=== PATIENT | female | born 1970 | race Caucasian/White ===

== ENCOUNTER 2021-01-22 17:32 | Emergency (ER) | payer OTHER, SELFPAY ==
--- NOTE | 2021-01-22 | ECG_ITS ---
Test Reason : CP Blood Pressure : / mmHG Vent. Rate : 074 BPM Atrial Rate : 074 BPM P-R Int : 156 ms QRS Dur : 074 ms QT Int : 372 ms P-R-T Axes : 036 044 034 degrees QTc Int : 412 ms Normal sinus rhythm Normal ECG No previous ECGs available Referred By: Generic ED Physician Electronically Signed By:Deepak Marcos
[2021-01-22 17:48] VITALS: BP 133/80; PULSE 72; RESP 16; TEMP 36.6; O2SAT 99; BMI 29.4
[2021-01-22 18:15] LABS: MANUAL DIFF FLAG NO
[2021-01-22 18:40] LABS: Anion Gap 13 (12-20); Blood Urea Nitrogen 18 mg/dL (9-16); Calcium 9.9 mg/dL (8.4-10.2); Carbon Dioxide 31 mmol/L (22-29); Chloride 102 mmol/L (96-108); Creatinine Clr Calc Pharmacy 80.7; Estimated Glomerular Filt Rate > 60; Glucose Random 192 mg/dL (60-115); Potassium 4.2 mmol/L (3.3-5.1); Sodium 142 mmol/L (135-145)
[2021-01-22 18:47] LABS: Troponin-I High Sensitivity < 3.5 ng/L (<3.5-17.0)
[2021-01-22 18:49] LABS: Basophils Percent Auto 0.3 % (0-2); Eosinophils Absolute Auto 0.1 X10*3/uL (0.0-0.4); Eosinophils Percent Auto 0.7 % (0-4); Hematocrit 35.2 % (37-47); Imm Gran Abs Auto 0.02 X10*3/uL (0.00-0.03); Imm Gran Pct Auto 0.2 % (0.0-0.4); Lymphocytes Absolute Auto 2.8 X10*3/uL (1.2-4.9); Lymphocytes Percent Auto 29.7 % (20-40); Mean Corpuscular HGB Conc 34.1 g/dl (31.0-35.0); Mean Corpuscular Hemoglobin 29.6 pg (27.0-33.0); Mean Corpuscular Volume 86.7 fL (80-98); Mean Platelet Volume 10.9 fL (9.4-12.3); Monocytes Absolute Auto 0.5 X10*3/uL (0.1-1.2); Monocytes Percent Auto 5.1 % (2-11); Platelet Count 286 X10*3/uL (160-400); Red Blood Count 4.06 X10*6/uL (4.20-5.50); Red Cell Distribution Width 12.2 % (11.0-16.0); White Blood Count 9.4 X10*3/uL (4.8-10.8)
[2021-01-22 19:22] VITALS: PULSE 83
[2021-01-22 19:36] VITALS: BP 122/77; PULSE 70; RESP 16; TEMP 36.7; O2SAT 100
[2021-01-22 20:13] VITALS: BP 113/71; PULSE 70; RESP 16; O2SAT 99
--- NOTE | 2021-01-22 20:39 | ED.CHESTPAIN ---
HPI - Chest Pain General Chief Complaint: Chest Pain Stated Complaint: chest pain Time Seen by Provider: 01/22/21 20:39 Source: patient Mode of arrival: ambulatory Limitations: no limitations History of Present Illness HPI narrative: Patient been having midsternal chest pain for last 2 weeks sharp pain lasting for few seconds pain starts in epigastric area goes to mid sternum no nausea no vomiting no shortness of breath no cough patient had similar pain in the past multiple times Related Data Allergies Allergy/AdvReac Type Severity Reaction Status Date / Time No Known Allergies Allergy Unverified 05/31/20 17:49 Review of Systems Review of Systems: Constitutional : No Weight loss, No Fever, No Chills ENT/Mouth : No sore throat, No Rhinorrhea Eyes: No Eye Pain, No Swelling Cardiovascular : + Chest Pain, no palpitations Respiratory : No Cough, No Sputum, no shortness of breath Gastrointestinal : no Nausea, No Vomiting, No Diarrhea, No abdominal Pain, no black stools Genitourinary : No Dysuria, No Urinary Frequency Musculoskeletal : No joint pain, No Myalgias, No Joint Swelling Skin : No Skin Lesions, No rash Neuro : No Weakness, No Numbness, No Dizziness, No Headache Psych : No Anxiety/Panic, No Depression Heme/Lymph: No Bruising, No Lymphadenopathy Endocrine : No Polyuria, No Polydipsia All other systems reviewed and are negative [facility] Past Medical History Medical History Diabetes High cholesterol Social History Social History Alcohol intake: never Smoking Status: Never smoker Use of substances other than those prescribed or required for medical reasons: No Advance Directives: No Advance Directives Information Provided: Yes Patient : No Physical Exam Vital Signs: Vital Signs: Last Vital Signs Temp 98.0 F 01/22/21 19:36 Pulse 70 01/22/21 20:13 Resp 16 01/22/21 20:13 BP 113/71 01/22/21 20:13 Pulse Ox 99 01/22/21 20:13 Body Mass Index 29.4 Appearance: Alert. Oriented X3. No acute distress. Eyes: PERRLA, No Nystagmus ENT: Pharynx normal. Oral Mucosa moist Neck: Normal inspection. Neck supple. CVS: Normal heart rate and rhythm. Pulses normal. Respiratory: No respiratory distress. Equal air entry bilateral, no wheezing/rales/rhonchi Abdomen: Soft and nontender. Bowel sounds are present, no mass palpable, no CVA tenderness Skin: Skin warm and dry. Normal skin color. Normal skin turgor. Extremities: No lower extremity edema. No calf tenderness Neuro: Oriented X 3. No motor deficit. No sensory deficit.No cerebellar signs , cranial nerves II-XII intact MDM - Chest Pain MDM Narrative Medical decision making narrative: Patient atypical sharp pain for 2 weeks normal EKG normal 2 sets of high sensitive troponin negative will discharge patient home likely noncardiac chest pain Lab Data Attestation: I reviewed the patient's lab results. Result diagrams: 01/22/21 18:10 01/22/21 18:10 Labs: Lab Results 01/22/21 01/22/21 01/22/21 Range/Units 18:10 18:10 18:10 WBC 9.4 (4.8-10.8) X10*3/uL RBC 4.06 L (4.20-5.50) X10*6/uL Hgb 12.0 (12.0-16.0) g/dl Hct 35.2 L (37-47) % MCV 86.7 (80-98) fL MCH 29.6 (27.0-33.0) pg MCHC 34.1 (31.0-35.0) g/dl RDW 12.2 (11.0-16.0) % Plt Count 286 (160-400) X10*3/uL MPV 10.9 (9.4-12.3) fL Immature Gran % (Auto) 0.2 (0.0-0.4) % Neut % (Auto) 64.0 (45-73) % Lymph % (Auto) 29.7 (20-40) % [facility] % (Auto) 5.1 (2-11) % Eos % (Auto) 0.7 (0-4) % Baso % (Auto) 0.3 (0-2) % Lymph # (Auto) 2.8 (1.2-4.9) X10*3/uL [facility] [place] [facility] # (Auto) 0.5 (0.1-1.2) X10*3/uL Eos # (Auto) 0.1 (0.0-0.4) X10*3/uL Baso # (Auto) 0.0 (0.0-0.2) X10*3/uL Abs Immat Gran (auto) 0.02 (0.00-0.03) X10*3/uL Absolute Neuts (auto) 6.0 (2.0-8.3) X10*3/uL Absolute Nucleated RBC 0.000 (0.0-0.012) X10*3/uL Nucleated RBC % (auto) 0.0 (0.0-0.2) /100WBC Sodium 142 (135-145) mmol/L Potassium 4.2 (3.3-5.1) mmol/L Chloride 102 (96-108) mmol/L Carbon Dioxide 31 H (22-29) mmol/L Anion Gap 13 (12-20) BUN 18 H (9-16) mg/dL Creatinine 0.78 (0.5-1.4) mg/dL Estim Creat Clear Calc 80.7 Estimated GFR > 60 Random Glucose 192 H (60-115) mg/dL Calcium 9.9 (8.4-10.2) mg/dL Troponin I High Sens < 3.5 (<3.5-17.0) ng/L 01/22/21 Range/Units 21:22 WBC (4.8-10.8) X10*3/uL RBC (4.20-5.50) X10*6/uL Hgb (12.0-16.0) g/dl Hct (37-47) % MCV (80-98) fL MCH (27.0-33.0) pg MCHC (31.0-35.0) g/dl RDW (11.0-16.0) % Plt Count (160-400) X10*3/uL MPV (9.4-12.3) fL Immature Gran % (Auto) (0.0-0.4) % Neut % (Auto) (45-73) % Lymph % (Auto) (20-40) % [facility] [place] [facility] % (Auto) (2-11) % Eos % (Auto) (0-4) % Baso % (Auto) (0-2) % Lymph # (Auto) (1.2-4.9) X10*3/uL [facility] [place] [facility] # (Auto) (0.1-1.2) X10*3/uL Eos # (Auto) (0.0-0.4) X10*3/uL Baso # (Auto) (0.0-0.2) X10*3/uL Abs Immat Gran (auto) (0.00-0.03) X10*3/uL Absolute Neuts (auto) (2.0-8.3) X10*3/uL Absolute Nucleated RBC (0.0-0.012) X10*3/uL Nucleated RBC % (auto) (0.0-0.2) /100WBC Sodium (135-145) mmol/L Potassium (3.3-5.1) mmol/L Chloride (96-108) mmol/L Carbon Dioxide (22-29) mmol/L Anion Gap (12-20) BUN (9-16) mg/dL Creatinine (0.5-1.4) mg/dL Estim Creat Clear Calc Estimated GFR Random Glucose (60-115) mg/dL Calcium (8.4-10.2) mg/dL Troponin I High Sens < 3.5 (<3.5-17.0) ng/L ECG Data ECG #1: Attestation: I personally reviewed and interpreted this ECG as follows: Interpretation: Normal sinus rhythm heart rate 74 beats per minute normal axis normal intervals no acute ST T wave changes impression normal EKG Scores Heart Score History: -0- slightly suspicious ECG: -0- normal Age: -1- >45 - <65 Risk factory: -1- 1 or 2 risk factors Troponin: -0- < or = normal limit Score: 2 Risk: 1.7% Discharge Plan Discharge Clinical Impression: Chest pain Qualifiers: Chest pain type: precordial pain Qualified Code(s): R07.2 - Precordial pain Patient Disposition: Home, Self-Care Instructions: Chest Pain (ED) Additional Instructions: Your pain does not look like coming from the heart. Follow-up with PCP for further treatment and management Discharge Date/Time: 01/22/21 22:36
[2021-01-22] MEDS: Aspirin Enteric Coated 81 MG TABLET.DR 162 MG PO (21:16)
[2021-01-22 22:04] LABS: Troponin-I High Sensitivity < 3.5 ng/L (<3.5-17.0)
== END 2021-01-22 22:36 | disposition home or self-care (01) ==
PROVIDERS: Emergency Provider Internal Medicine; PCP Pediatrics
DX: R07.2 Precordial pain (principal); E11.9 Type 2 diabetes mellitus without complications; E78.5 Hyperlipidemia, unspecified
CPT/HCPCS: 36415; 80048; 84484; 85025; 93005; 99283; 99285

== ENCOUNTER → 2021-03-11 13:07 | Outpatient (BNVA) | payer OTHER, SELFPAY | PROVIDERS: PCP Pediatrics; Referring Provider Pediatrics; Visit Provider Internal Medicine Cardiovascular Disease ==

== ENCOUNTER → 2021-04-03 07:50 | Outpatient (REF) | payer OTHER, SELFPAY ==
--- NOTE | 2021-04-03 07:54 | CA_ITS ---
Acquisition Time: 2021-04-03 08:00:28 Total Exercise Time: 00:06:40 Test Indications: Chest Pain Medications: METFORMIN NAPROXEN ROSUVASTATIN Protocol: SONAL Max HR: 130 BPM 76% of Pred: 170 BPM Max BP: 160/074 mmHG Max Work Load: 8.0 METS Exercise stress test with exercise 6 min 40 sec of Sonal protocol, with report 8/10 left chest burning with exercise, without arrythmia, with normotensive response to exercise, with nondiagnostic EKG for ischemia due to suboptimal heart rate, acheiving 76% MPHR, goal was 85% MPHR. In recovery her chest burning gradually improved and resolved. Test reviewed with Dr Rojas. Will order a pharm nuclear stress test for further evaluation. Referred By: Deepak Marcos Overread By: MIREYA FARR
== END ==
LOC: HO.CARD 07:50
PROVIDERS: Visit Provider Internal Medicine Cardiovascular Disease
DX: R07.9 Chest pain, unspecified (principal); R94.39 Abnormal result of other cardiovascular function study
CPT/HCPCS: 93017

== ENCOUNTER 2021-04-22 09:35 | Outpatient (REF) | payer OTHER, SELFPAY ==
[2021-04-22 10:07] LABS: MANUAL DIFF FLAG NO
[2021-04-22 10:13] LABS: Basophils Percent Auto 0.3 % (0-2); Eosinophils Absolute Auto 0.1 X10*3/uL (0.0-0.4); Eosinophils Percent Auto 1.2 % (0-4); Hematocrit 34.9 % (37-47); Hemoglobin 11.6 g/dl (12.0-16.0); Imm Gran Abs Auto 0.03 X10*3/uL (0.00-0.03); Imm Gran Pct Auto 0.4 % (0.0-0.4); Lymphocytes Absolute Auto 1.9 X10*3/uL (1.2-4.9); Lymphocytes Percent Auto 25.3 % (20-40); Mean Corpuscular HGB Conc 33.2 g/dl (31.0-35.0); Mean Corpuscular Hemoglobin 28.9 pg (27.0-33.0); Mean Corpuscular Volume 86.8 fL (80-98); Mean Platelet Volume 11.5 fL (9.4-12.3); Monocytes Absolute Auto 0.4 X10*3/uL (0.1-1.2); Monocytes Percent Auto 5.3 % (2-11); Neutrophils Absolute Auto 4.9 X10*3/uL (2.0-8.3); Neutrophils Percent Auto 67.5 % (45-73); Platelet Count 256 X10*3/uL (160-400); Red Blood Count 4.02 X10*6/uL (4.20-5.50); Red Cell Distribution Width 12.6 % (11.0-16.0); White Blood Count 7.3 X10*3/uL (4.8-10.8)
[2021-04-22 10:38] LABS: Anion Gap 11 (12-20); Blood Urea Nitrogen 14 mg/dL (9-16); Calcium 9.1 mg/dL (8.4-10.2); Carbon Dioxide 27 mmol/L (22-29); Chloride 105 mmol/L (96-108); Estimated Glomerular Filt Rate > 60; Glucose Random 159 mg/dL (60-115); Potassium 4.7 mmol/L (3.3-5.1); Sodium 138 mmol/L (135-145)
== END 2021-04-22 09:36 | disposition home or self-care (01) ==
LOC: HO.LAB 09:35
PROVIDERS: PCP Pediatrics; Visit Provider Internal Medicine Cardiovascular Disease
DX: R07.9 Chest pain, unspecified (principal); R94.39 Abnormal result of other cardiovascular function study
CPT/HCPCS: 36415; 80048; 85025

== ENCOUNTER 2021-04-22 09:39 | Outpatient (REF) | payer OTHER, SELFPAY | END 2021-04-22 09:40 | disposition home or self-care (01) | LOC: HO.LAB 09:39 | PROVIDERS: PCP Pediatrics; Visit Provider Internal Medicine | DX: Z20.822 Contact with and (suspected) exposure to COVID-19 (principal) | CPT/HCPCS: C9803; U0003; U0005 ==

== ENCOUNTER → 2021-05-23 14:37 | Outpatient (BNVA) | payer OTHER, SELFPAY | PROVIDERS: PCP Pediatrics; Referring Provider Pediatrics; Visit Provider Nurse Practitioner Family ==

== ENCOUNTER 2021-06-03 14:36 | Outpatient (REF) | payer OTHER, SELFPAY ==
--- NOTE | ~2021-06-03 | MM_ITS ---
EXAMINATION: MM DIAGNOSTIC DIGITAL BREAST TOMOSYNTHESIS, BILATERAL CLINICAL INFORMATION: Left breast calcifications 1 year follow-up The lifetime risk of breast cancer based on the Tyrer-Cuzick Model is 9.9%. COMPARISON: Mammography: May 16, 2020 and studies dating back to September 29, 2011 TECHNIQUE: Digital breast tomosynthesis is performed in both the craniocaudal and mediolateral oblique views along with computer-aided detection (CAD). Synthesized 2D images are generated from the tomosynthesis. Spot magnification views of the left breast in craniocaudal and 90 degree mediolateral views performed. FINDINGS: The breasts are heterogeneously dense, which may obscure small masses (ACR BI-RADS breast composition Category c). There are no new significant masses, abnormal calcifications, or other abnormalities. There is stability of bilateral breast calcifications. Results are provided to the patient at time of visit by the technologist. MM/MM tomosynthesis diagnostic LT IMPRESSION: There are no significant changes from prior study. ASSESSMENT: BI-RADS 2: Benign RECOMMENDATION: Routine annual mammography screening due in 12 months. This patient's information was entered into a reminder system with a target due date for their next mammogram.
== END 2021-06-03 14:37 | disposition home or self-care (01) ==
LOC: HO.MAMMO 14:36
PROVIDERS: PCP Pediatrics; Visit Provider Pediatrics
DX: R92.1 Mammographic calcification found on diagnostic imaging of breast (principal)
CPT/HCPCS: 77061; 77065

== ENCOUNTER → 2021-07-09 13:53 | Outpatient (REF) | payer OTHER, SELFPAY ==
--- NOTE | 2021-07-09 13:57 | CA_ITS ---
Transthoracic Echocardiogram Patient (Last, First, Middle): Usha Beck, Gender: Female Date of : 1970 Age: 50 Procedure Date: 07/09/2021 Procedure Type: Transthoracic Echocardiogram Location: OP Height: 157.48 cm Weight: 72.58 kg BSA: 1.74 m2 Heart Rate: bpm BP: 122 / 60 mmHg Statistics Professor: Referring MD: Reyna Ricci [employer] Symptoms: UNSPEC. CHEST PAIN, ABN RESULT CARDIOVAS STUDY Study Quality: Good ECG Rhythm: Sinus Conclusions: - The left ventricular systolic function is normal. The visually estimated ejection fraction is between 60-65%. - No obvious valvular pathology seen on this study. Findings Left Ventricle Normal left ventricular cavity size. There is normal left ventricular wall thickness. The left ventricular systolic function is normal. The visually estimated ejection fraction is between 60-65%. There is no evidence of regional wall motion abnormalities. Diastolic function is normal for age. Right Ventricle Normal right ventricular cavity size and systolic function. Atria Both atria are normal in size. Aortic Valve There is a normal trileaflet aortic valve. There is no aortic valve stenosis. There is no aortic valve regurgitation. Mitral Valve The mitral valve appears normal. There is no mitral valve regurgitation. There is no mitral valve stenosis. Pulmonic Valve The pulmonic valve was not well visualized. There is trace pulmonic valve regurgitation. Tricuspid Valve Normal tricuspid valve structure. There is mild tricuspid valve regurgitation. The pulmonary artery systolic pressure is normal. Great Vessels The aortic annulus, sinuses of valsalva, and asc aorta are normal in size. Venous The inferior vena cava is normal in size and collapses greater than 50% with inspiration. Pericardium/Pleural There is no evidence of pericardial effusion. Prior Study Comparison No prior study available for comparison. Recommendations, Care & Conclusions No obvious valvular pathology seen on this study. Measurements 2D Linear Measurements IVSd: 1.01 0.6-0.9/0.6-1.0 cm LVIDd: 3.89 3.9-5.3/4.2-5.9 cm LVIDd Index: 2.24 2.4-3.2/2.2-3.1 cm/m2 LVIDs: 2.22 2.0-3.6 cm LVPWd: 1.04 0.7-1.1 cm Ao Root: 2.40 2.1-3.5 cm LA Diam: 3.30 2.7-3.8/3.0-4.0 cm LAIDs Index: 1.90 1.5-2.3 cm/m2 LV Mass: 156.75 67-162/88-224 g LV Mass Index: 90.09 43-95/49-115 g/m2 LVOT Diam: 1.80 3.0+(-)1.3 cm 2D Systolic Function EF 4C: 66.50 >55% EF 2C: 65.80 >55% EF BiP: 65.80 >55% Mitral Valve MV Pk E: 0.79 MV PK A: 0.75 MV Decel Time: 196.00 E/A: 1.10 E'Lateral: 13.70 E'Medial: 9.14 E/E' Med: 8.60 E/E' Lat: 5.80 PHT: 57.00 MVA PHT: 3.86 Decel [place]: 4.03 Aortic Valve AoV Pk Rohith: 1.79 AoV Mn Rohith: 1.06 AoV VTI: 0.36 AoV Pk Grad: 13.00 Aov Mn Grad: 5.00 AYUSH Cont.VTI: 1.66 LVOT LVOT Pk Rohith: 1.06 LVOT Mn Rohith: 0.68 LVOT VTI: 0.24 LVOT Pk Grad: 4.00 LVOT Mn Grad: 2.00 LVOT Diam: 1.80 LVOT Area: 2.54 Diastolic Function MV Pk E: 0.79 MV Pk A: 0.75 E/A: 1.10 E'Medial: 9.14 E/E' Med: 8.60 E' Laterial: 13.70 E/E' Lat: 5.80 Right Ventricle TAPSE (mm): 18.00 TVS' Rohith: 9.00 Tricuspid Valve TR Pk Rohith: 2.24 TR Pk Grad: 20.00 Great Vessels Aorta Ao Root-2D: 2.40 2.0-3.7 cm Ao Asc: 3.00 2.1-3.4 cm Pulmonary Valve PV Pk Rohith: 1.03 Peak PV Grad: 4.00 Updated in Other Vendor System with Status of Final Héctor De La Torre MD electronically signed on 07/10/2021 8:52:57 AM with status of Final
== END ==
LOC: HO.CARD 13:53
PROVIDERS: PCP Pediatrics; Visit Provider Nurse Practitioner Family
DX: R07.9 Chest pain, unspecified (principal); R94.39 Abnormal result of other cardiovascular function study
CPT/HCPCS: 93306

== ENCOUNTER → 2021-07-10 14:16 | Outpatient (BNVA) | payer OTHER, SELFPAY | PROVIDERS: PCP Pediatrics; Referring Provider Pediatrics; Visit Provider Nurse Practitioner Family ==

== ENCOUNTER 2021-09-03 08:45 | Outpatient (REF) | payer OTHER, SELFPAY ==
[2021-09-03 09:49] LABS: COVID-19 Test Negative (Negative); IDNOW Serial# 16C4AD1C
== END 2021-09-03 08:46 | disposition home or self-care (01) ==
LOC: HO.LAB 08:45
PROVIDERS: PCP Pediatrics; Visit Provider Internal Medicine
DX: Z20.822 Contact with and (suspected) exposure to COVID-19 (principal)
CPT/HCPCS: 36415; 87635; C9803

== ENCOUNTER 2022-05-27 13:37 | Outpatient (REF) | payer OTHER, SELFPAY ==
--- NOTE | ~2022-05-27 | MM_ITS ---
EXAMINATION: MM SCREENING DIGITAL BREAST TOMOSYNTHESIS, BILATERAL CLINICAL INFORMATION: Screening. Asymptomatic. The lifetime risk of breast cancer based on the Tyrer-Cuzick Model is 8%. COMPARISON: Mammography: 06/03/2021 and studies dating back to 04/10/2014. TECHNIQUE: Digital breast tomosynthesis is performed in both the craniocaudal and mediolateral oblique views along with computer-aided detection (CAD). Synthesized 2D images are generated from the tomosynthesis. FINDINGS: The breasts are heterogeneously dense, which may obscure small masses (ACR BI-RADS breast composition Category c). There are bilateral circumscribed densities present which are stable. There is a calcified oil cyst seen about the inferior aspect of the right breast. A lobulated density seen about the superior aspect of the right breast approximately 5.5 cm from the nipple, is again evident and has been stable on ultrasound evaluations dating back to 11/08/2018. MM/MM tomosynthesis screening BI IMPRESSION: Stable appearance of the breast as described above. ASSESSMENT: BI-RADS 2: Benign. RECOMMENDATION: Routine annual mammography screening. This patient's information was entered into a reminder system with a target due date for their next mammogram.
== END 2022-05-27 13:38 | disposition home or self-care (01) ==
LOC: HO.MAMMO 13:37
PROVIDERS: PCP Pediatrics; Visit Provider Pediatrics
DX: Z12.31 Encounter for screening mammogram for malignant neoplasm of breast (principal)
CPT/HCPCS: 77063; 77067

== ENCOUNTER 2023-04-06 10:51 | Outpatient (REF) | payer OTHER, SELFPAY ==
--- NOTE | ~2023-04-06 | XR_ITS ---
EXAMINATION: XR SHOULDER, RIGHT CLINICAL INFORMATION: Shoulder pain COMPARISON: None available. TECHNIQUE: AP external rotation, Grashey, scapular Y, and axillary views of the right shoulder. FINDINGS: The bones and soft tissues are normal. No fracture. Glenohumeral and acromioclavicular alignment is anatomic with normal joint space. No abnormal soft tissue calcifications. XR/XR shoulder RT min 2V IMPRESSION: Unremarkable right shoulder.
== END 2023-04-06 10:52 | disposition home or self-care (01) ==
LOC: HO.HHCX 10:51
PROVIDERS: Visit Provider Pediatrics
DX: M25.511 Pain in right shoulder (principal); G89.29 Other chronic pain
CPT/HCPCS: 73030

== ENCOUNTER 2023-06-05 10:09 | Outpatient (REF) | payer OTHER, SELFPAY | END 2023-06-05 10:10 | disposition home or self-care (01) | LOC: HO.MAMMO 10:09 | PROVIDERS: Visit Provider Pediatrics | DX: Z12.31 Encounter for screening mammogram for malignant neoplasm of breast (principal) | CPT/HCPCS: 77063; 77067 ==

== ENCOUNTER → 2023-06-05 10:15 | Outpatient (BNV) | payer OTHER, SELFPAY | PROVIDERS: Visit Provider Radiology Diagnostic Radiology | DX: Z12.31 Encounter for screening mammogram for malignant neoplasm of breast (principal) | CPT/HCPCS: 77063; 77067 ==

== ENCOUNTER 2023-08-28 09:03 | Outpatient (REF) | payer OTHER, SELFPAY ==
--- NOTE | ~2023-08-28 | XR_ITS ---
EXAMINATION: XR LUMBOSACRAL SPINE CLINICAL INFORMATION: Pain radiating to left leg. COMPARISON: None available. TECHNIQUE: Three views of the lumbosacral spine. FINDINGS: There is a small right-sided ribs and absence of left-sided rib at T12 level. The vertebral bodies have normal height and alignment. The lordotic curvature of the lumbar spine is normal. The disc spaces are maintained. Small anterior vertebral osteophytes are present at multiple levels of the visualized lower thoracic and lumbar spine (i.e., mild spondylosis). No pars interarticularis defect or vertebral compression fracture. The anterior and posterior elements are intact. No lytic or osteoblastic lesion. There are no radiographic findings to suggest any significant osseous stenosis of the lumbar spinal canal or neural foramina. Sacrum and sacroiliac joints are normal. XR/XR lumbar spine 2-3V IMPRESSION: * Mild spondylosis of the lumbar spine. * No significant radiographic abnormalities. No fracture or malalignment. * Sacroiliac joints are normal.
--- NOTE | ~2023-08-28 | XR_ITS ---
EXAMINATION: XR HIP, LEFT CLINICAL INFORMATION: Pain COMPARISON: None available. TECHNIQUE: Two views of the left hip. FINDINGS: The femoral head is well-positioned within the intact acetabulum. The articular cartilage space of the hip is well-preserved. There appears to be an old ossicle at the superolateral acetabulum. No erosions or periostitis. The visualized pelvic bones are normal. No lytic or osteoblastic lesion. There are phleboliths within the visualized lower pelvis. XR/XR hip LT min 2V IMPRESSION: No specific source of pain is identified. No arthritic deformity, fracture or malalignment at the left hip.
== END 2023-08-28 09:04 | disposition home or self-care (01) ==
LOC: HO.HHCX 09:03
PROVIDERS: Visit Provider Pediatrics
DX: M54.50 Low back pain, unspecified (principal)
CPT/HCPCS: 72100; 73502

== ENCOUNTER 2024-01-11 10:13 | Outpatient (REF) | payer OTHER, SELFPAY ==
[2024-01-11 14:01] LABS: MANUAL DIFF FLAG NO
[2024-01-11 14:13] LABS: Appearance Urine Clear; Color Urine Yellow; Glucose Urine UA Negative (Negative); Leukocyte Esterase Urine Negative (Negative); Nitrite Urine Negative (Negative); Specific Gravity - Urine 1.025 (1.005-1.025); Urine Blood Negative (Negative); Urine Ketones Negative (Negative); Urine Protein Negative (Neg-Trace)
[2024-01-11 14:14] LABS: Basophils Percent Auto 0.5 % (0-2); Eosinophils Absolute Auto 0.1 X10*3/uL (0.0-0.4); Eosinophils Percent Auto 1.2 % (0-4); Hematocrit 34.7 % (37.0-47.0); Hemoglobin 11.5 g/dl (12.0-16.0); Imm Gran Abs Auto 0.02 X10*3/uL (0.00-0.03); Imm Gran Pct Auto 0.4 % (0.0-0.4); Lymphocytes Absolute Auto 1.8 X10*3/uL (1.2-4.9); Lymphocytes Percent Auto 31.2 % (20-40); Mean Corpuscular HGB Conc 33.1 g/dl (31.0-35.0); Mean Corpuscular Hemoglobin 28.3 pg (27.0-33.0); Mean Corpuscular Volume 85.3 fL (80.0-98.0); Mean Platelet Volume 11.8 fL (9.4-12.3); Monocytes Absolute Auto 0.3 X10*3/uL (0.1-1.2); Monocytes Percent Auto 5.5 % (2-11); Neutrophils Absolute Auto 3.5 x10*3/uL (2.0-8.3); Neutrophils Percent Auto 61.2 % (45-73); Platelet Count 241 X10*3/uL (160-400); Red Blood Count 4.07 X10*6/uL (4.20-5.50); Red Cell Distribution Width 13.2 % (11.0-16.0); White Blood Count 5.7 X10*3/uL (4.8-10.8)
[2024-01-11 15:05] LABS: Alanine Aminotransferase 15 U/L (0-31); Albumin Level 4.1 g/dL (3.5-5.0); Alkaline Phosphatase 61 U/L (39-117); Anion Gap 9 (12-20); Aspartate Amino Transferase 15 U/L (5-31); Bilirubin Direct 0.2 mg/dL (0.0-0.5); Bilirubin Total 0.6 mg/dL (0.0-1.0); Blood Urea Nitrogen 19 mg/dL (9-16); Carbon Dioxide 27 mmol/L (22-29); Chloride 105 mmol/L (96-108); Cholesterol 164 mg/dL (<200); Estimated Glomerular Filt Rate > 60; Glucose Random 118 mg/dL (60-115); HDL Cholesterol 52 mg/dL (>40); LDL Cholesterol Calculated 89 mg/dL (<100); Potassium 3.6 mmol/L (3.3-5.1); Sodium 137 mmol/L (135-145); Total Protein 6.9 g/dL (6.5-8.0); Triglycerides 118 mg/dL (<150)
[2024-01-11 15:19] LABS: TSH reflex Free T4 1.42 uIU/mL (0.32-4.0); Vitamin D 25-OH Total 30.4 ng/mL (>30)
[2024-01-11 15:23] LABS: Creatinine Urine 128.56 mg/dL; Microalbum/Creatinine Ratio Ur 10.1 ug/mg cr (<30)
== END 2024-01-11 10:14 | disposition home or self-care (01) ==
LOC: HO.CHCLDS 10:13
PROVIDERS: Visit Provider Pediatrics
DX: E11.65 Type 2 diabetes mellitus with hyperglycemia (principal); E78.5 Hyperlipidemia, unspecified
CPT/HCPCS: 36415; 80048; 80061; 80076; 81003; 82043; 82306; 82570; 84443; 85025

== ENCOUNTER 2024-03-25 15:05 | Outpatient (REF) | payer OTHER, SELFPAY ==
[2024-03-25 16:01] LABS: MANUAL DIFF FLAG NO
[2024-03-25 16:10] LABS: Basophils Percent Auto 0.5 % (0-2); Eosinophils Absolute Auto 0.1 X10*3/uL (0.0-0.4); Eosinophils Percent Auto 1.4 % (0-4); Hematocrit 37.1 % (37.0-47.0); Hemoglobin 12.4 g/dl (12.0-16.0); Imm Gran Abs Auto 0.01 X10*3/uL (0.00-0.03); Imm Gran Pct Auto 0.2 % (0.0-0.4); Lymphocytes Absolute Auto 2.2 X10*3/uL (1.2-4.9); Lymphocytes Percent Auto 34.9 % (20-40); Mean Corpuscular HGB Conc 33.4 g/dl (31.0-35.0); Mean Corpuscular Hemoglobin 28.3 pg (27.0-33.0); Mean Corpuscular Volume 84.7 fL (80.0-98.0); Mean Platelet Volume 11.7 fL (9.4-12.3); Monocytes Absolute Auto 0.5 X10*3/uL (0.1-1.2); Monocytes Percent Auto 7.2 % (2-11); Neutrophils Absolute Auto 3.6 x10*3/uL (2.0-8.3); Neutrophils Percent Auto 55.8 % (45-73); Platelet Count 259 X10*3/uL (160-400); Red Blood Count 4.38 X10*6/uL (4.20-5.50); Red Cell Distribution Width 13.3 % (11.0-16.0); White Blood Count 6.4 X10*3/uL (4.8-10.8)
[2024-03-25 16:29] LABS: Alanine Aminotransferase 12 U/L (0-31); Albumin Level 4.3 g/dL (3.5-5.0); Alkaline Phosphatase 62 U/L (39-117); Anion Gap 11 (12-20); Aspartate Amino Transferase 12 U/L (5-31); Bilirubin Total 0.3 mg/dL (0.0-1.0); Blood Urea Nitrogen 15 mg/dL (9-16); C Reactive Protein 0.36 mg/dL (< or = 0.50); Calcium 9.9 mg/dL (8.4-10.2); Carbon Dioxide 28 mmol/L (22-29); Chloride 104 mmol/L (96-108); Estimated Glomerular Filt Rate > 60; Glucose Random 116 mg/dL (60-115); Potassium 3.8 mmol/L (3.3-5.1); Sodium 139 mmol/L (135-145); Total Protein 7.1 g/dL (6.5-8.0)
[2024-03-25 17:00] LABS: Erythrocyte Sedimentation Rate 14 MM/HR (0-20)
== END 2024-03-25 15:06 | disposition home or self-care (01) ==
LOC: HO.HHCL 15:05
PROVIDERS: Visit Provider Nurse Practitioner Family
DX: R10.32 Left lower quadrant pain (principal)
CPT/HCPCS: 36415; 80053; 85025; 85652; 86140

== ENCOUNTER 2024-03-25 18:20 | Outpatient (REF) | payer OTHER, SELFPAY | END 2024-03-25 18:21 | disposition home or self-care (01) | LOC: HO.HHCLNP 18:20 | PROVIDERS: Visit Provider Nurse Practitioner Family | DX: R10.32 Left lower quadrant pain (principal) | CPT/HCPCS: 87086 ==

== ENCOUNTER 2024-04-21 13:16 | Outpatient (REF) | payer OTHER, SELFPAY ==
--- NOTE | ~2024-04-21 | CT_ITS ---
EXAMINATION: CT ABDOMEN AND PELVIS WITHOUT CONTRAST CLINICAL INFORMATION: Left-sided colicky flank pain. Positive CVA tenderness. Hematuria. COMPARISON: None available TECHNIQUE: Contiguous axial thin section helical images of the abdomen and pelvis were performed without contrast. The data set was reformatted in the coronal and sagittal planes and reviewed on an independent workstation. This CT examination was performed using dose optimization techniques as appropriate, variously including the following: *Automated exposure control *Adjustment of mA and/or kV according to patient size (this includes techniques or standardized protocols for targeted exams where dose is matched to indication/reason for exam; i.e. extremities or head) *Use of iterative reconstruction technique DLP: 393 mGy-cm FINDINGS: Visualized lung bases are well aerated. The liver is normal in size but demonstrates diffusely decreased attenuation. A few punctate calcified granulomas are noted within the liver. The gallbladder is normal in appearance. The pancreas, spleen and left adrenal gland are unremarkable. 2.7 cm right adrenal lesion with attenuation characteristics most consistent with an adenoma. Symmetrically sized kidneys. No renal calculi or hydronephrosis of either kidney. Normal caliber loops of small and large bowel. Normal appendix. The bladder is normal in appearance. Lobulated uterine appearance suggesting possible underlying fibroids. Suspected bilobed approximately 4 cm right adnexal cyst. No gross free pelvic fluid. No inguinal lymphadenopathy. Mild diffuse degenerative changes of the spine. CT/CT kidney stone IMPRESSION: 1. No renal calculi or hydronephrosis of either kidney. 2. Diffusely decreased liver attenuation suggesting hepatic steatosis. Correlation with liver enzymes recommended. 3. 2.7 cm right adrenal lesion with attenuation characteristics most consistent with an adenoma. 4. Lobulated uterine appearance suggesting possible underlying fibroids. Suspected bilobed approximately 4 cm right adnexal cyst. This can be further evaluated with dedicated pelvic ultrasound as clinically indicated.
== END 2024-04-21 13:17 | disposition home or self-care (01) ==
LOC: HO.CT 13:16
PROVIDERS: PCP Pediatrics; Visit Provider Nurse Practitioner Family
DX: R10.9 Unspecified abdominal pain (principal)
CPT/HCPCS: 74176

== ENCOUNTER 2024-06-07 11:49 | Outpatient (REF) | payer OTHER, SELFPAY ==
--- NOTE | ~2024-06-07 | MM_ITS ---
EXAMINATION: MM SCREENING DIGITAL BREAST TOMOSYNTHESIS, BILATERAL CLINICAL INFORMATION: Screening. Asymptomatic. COMPARISON: Mammography: Comparison is made with available priors TECHNIQUE: Digital breast mammography with tomosynthesis is performed in both the craniocaudal and mediolateral oblique views along with computer-aided detection (CAD). FINDINGS: The breasts are heterogeneously dense, which may obscure small masses (ACR BI-RADS breast composition Category c). Left breast marker clips. There are no significant masses, abnormal calcifications, or other abnormalities. MM/MM tomosynthesis screening BI IMPRESSION: No mammographic evidence of malignancy. ASSESSMENT: BI-RADS BI-RADS 2 - Benign Findings RECOMMENDATION: Routine annual mammography screening. 1 year F/U This examination should not preclude the clinical evaluation of a suspicious palpable abnormality. This patient's information was entered into a reminder system with a target due date for their next mammogram. Electronically signed by: Annabelle Diez DO 06/17/2024 12:35 PM EDT
== END 2024-06-07 11:50 | disposition home or self-care (01) ==
LOC: HO.MAMMO 11:49
PROVIDERS: PCP Pediatrics; Visit Provider Pediatrics
DX: Z12.31 Encounter for screening mammogram for malignant neoplasm of breast (principal)
CPT/HCPCS: 77063; 77067

== ENCOUNTER → 2024-06-07 12:15 | Outpatient (BNV) | payer OTHER, SELFPAY | PROVIDERS: PCP Pediatrics; Visit Provider Internal Medicine | DX: Z12.31 Encounter for screening mammogram for malignant neoplasm of breast (principal) | CPT/HCPCS: 77063; 77067 ==

== ENCOUNTER 2025-02-23 16:23 | Outpatient (REF) | payer OTHER, SELFPAY ==
[2025-02-23 17:29] LABS: Bacterial Vaginosis PCR NEGATIVE (Negative); Candida Group PCR DETECTED (Not Detect); Candida glab krusei PCR NOT DETECTED (Not Detect); Trichomonas vaginalis PCR NOT DETECTED (Not Detect)
[2025-02-23 18:00] LABS: CT PCR NOT DETECTED (Not Detect.); NG PCR NOT DETECTED (Not Detect.)
== END 2025-02-23 16:24 | disposition home or self-care (01) ==
LOC: HO.HHCLNP 16:23
PROVIDERS: Visit Provider Family Medicine
DX: N89.8 Other specified noninflammatory disorders of vagina (principal); N39.0 Urinary tract infection, site not specified
CPT/HCPCS: 81515; 87086; 87491; 87591

== ENCOUNTER 2025-02-24 08:18 | Outpatient (REF) | payer OTHER, SELFPAY ==
--- OUTSIDE RECORDS SUMMARY | 2025-02-24 08:28 | XMS_ITS | Encounter Summary ---
Author Organization [employer] Address [address] [place] [address] Care Team Providers Care Manager Nc Name Role Phone Niecy Card MD Primary Care Provider [phone] Randi Berg PharmD Unavailable [phone] Reason for Visit * Reason Comments Med Change Request Encounter Details Date Type Department Care Team (Late st Contact Info) Description 04/01/2024 Refill [facility] [address], [place] [phone] Johanna Ohsea NP [address], [place] [phone] Flank pain Social History Tobacco Use Types Packs/Day Years Used Date Smoking Tobacco: Never Passive Smoke Exposure: Never Smokeless Tobacco: Never Depression Answer Date Recorded Patient Health Questionnaire-9 Score 0 12/31/2023 Patient Health Questionnaire-9 Score 0 12/31/2023 Last PHQ-9: Questionnaire Data Not on file 0 12/31/2023 Housing Stability Answer Date Recorded What is your housing situation today? I have raudel duvall 12/23/[address] you li ve. Do you have problems with any of the following? None of the above 12/23/2023 Food Insecurity Answer Date Recorded Within the past 12 months, y ou worried that your food would run out before you got money to buy more: Never True 12/23/2023 Within the past 12 months,th e food you bought just didn't last and you didn't have enough money to get more: Never True 06/2024 Transportation Answer Date Recorded In the past 12 months, has l ack of transportation kept you from medical appts, meetings, work or from getting things needed for daily living? No 12/23/2023 Utilities Answer Date Recorded In the past 12 months, has t he electric, gas, oil or water company threatened to shut off services in your home? No 12/23/2023 Depression Answer Date Recorded Patient Health Questionnaire-2 Score 0 12/31/2023 Comments Unknown Sex and Gender Information Value Date Recorded Sex Assigned at Female 07/14/2022 10:20 AM EDT Legal Sex Female 10:20 AM EDT Gender Identity Female 07/14/2022 10:20 AM EDT Sexual Orientation Straight 07/14/2022 10 :20 AM EDT documented as of this encounter Plan of Treatment Upcoming Encounters Date Type Department Care Team (Late st Contact Info) Description 03/01/2025 9:30 AM EDT Office Visit [facility] [address] [place] [address] Niecy Card MD [address] [place] [address] 03/29/2025 9:00 AM EDT Medication Management [facility] [address] [place] [address] Randi Berg PharmD [address] [place] [address] documented as of this encounter Visit Diagnoses Diagnosis Flank pain Abdominal pain, unspecified site documented in this encounter Additional Health Concerns Assessment Noted Time PHQ-9 Depression Total Score: 0 12/31/19 24 10:10 AM EDT documented as of this encounter Care Teams Manager Nc Relationship Specialty Start Date End Date Niecy Card MD [address], [place] [phone] PCP - General Family Medicine 03/28/21 Randi Berg, PharmD [address] [place] [address] Pharmacist Internal Medicine 02/23/25 documented as of this encounter
[2025-02-24 14:28] LABS: Alanine Aminotransferase 15 U/L (0-31); Albumin Level 4.3 g/dL (3.5-5.0); Alkaline Phosphatase 59 U/L (39-117); Anion Gap 12 (12-20); Aspartate Amino Transferase 19 U/L (5-31); Bilirubin Total 0.4 mg/dL (0.0-1.0); Blood Urea Nitrogen 15 mg/dL (9-16); Calcium 9.1 mg/dL (8.4-10.2); Carbon Dioxide 26 mmol/L (22-29); Chloride 105 mmol/L (96-108); Cholesterol 254 mg/dL (<200); Estimated Glomerular Filt Rate > 60; Glucose Random 142 mg/dL (60-115); HDL Cholesterol 57 mg/dL (>40); LDL Cholesterol Calculated 170 mg/dL (<100); Sodium 139 mmol/L (135-145); Total Protein 6.6 g/dL (6.5-8.0); Triglycerides 137 mg/dL (<150)
[2025-02-24 14:47] LABS: Vitamin B12 362 pg/mL (200-900)
[2025-02-24 14:57] LABS: Microalbum/Creatinine Ratio Ur 9.6 ug/mg cr (<30)
== END 2025-02-24 08:19 | disposition home or self-care (01) ==
LOC: HO.CHCLDS 08:18
PROVIDERS: Pediatrics; Visit Provider Internal Medicine
DX: N39.0 Urinary tract infection, site not specified (principal); E11.65 Type 2 diabetes mellitus with hyperglycemia
CPT/HCPCS: 36415; 80053; 80061; 82043; 82570; 82607; 87086

== ENCOUNTER 2025-04-03 16:44 | Outpatient (REF) | payer OTHER, SELFPAY ==
--- OUTSIDE RECORDS SUMMARY | 2025-04-03 14:20 | XMS_ITS | Encounter Summary ---
Author Organization [employer] Address [address] [place] [address] Care Team Providers Care Registration Specialist Name Role Phone Niecy Card MD Primary Care Provider [phone] Randi Berg PharmD Unavailable [phone] Reason for Visit * Reason Comments uti symptoms Vaginal Itching Encounter Details Date Type Department Care Team ([facility] st Contact Info) Description 04/03/2025 2:20 PM EDT Office Visit [facility] [address] [place] [address] Joceline vaginitis (Primary Dx) Social History Tobacco Use Types Packs/Day Years [...] AM EDT documented as of this encounter Last Filed Vital Signs Vital Sign Reading Time Taken Comments Blood Pressure 109/71 04/03/2025 1:24 PM EDT Pulse 75 04/03/2025 1:24 PM EDT Temperature 36.8 C (98.2 F) 04/03/2025 1:24 PM EDT Respiratory Rate 17 04/03/2025 1:24 PM EDT Oxygen Saturation 97% 04/03/2025 1:24 PM EDT Inhaled Oxygen Concentration - - Weight 64.6 kg (142 lb 6.4 oz) 04/03/2025 1:24 P M EDT Height - - Body Mass Index 27.81 11/23/2024 10:22 AM EDT documented in this encounter Plan of Treatment Upcoming Encounters Date Type Department Care Team (Late st Contact Info) Description 05/04/2025 2:00 PM EDT Medication Management [facility] MED & PEDS [address] [place] [address] Randi Berg, PharmD [address] [place] [address] Scheduled Orders Name Type Priority Associated Diagnoses Orde r Schedule Culture, Urine, Routine Microbiology Routine Joceline vaginitis Ordered: 04/03/2025 Bacterial Vaginosis Panel Microbiology Routine Joceline vaginitis Ordered: 04/03/2025 Chlamydia/N. Gonorrhoeae RNA, TMA, Vaginal Microbiology Routine Joceline vaginitis Ordered: 04/03/2025 documented as of this encounter Procedures Procedure Name Priority Date/Time Associated Diagnosis Comments POCT GLUCOSE Routine 04/03/2025 2:02 PM EDT Joceline vaginitis POCT URINALYSIS DIPSTICK Routine 04/03/2025 2:02 PM EDT Joceline vaginitis documented in this encounter Results * POCT urinalysis dipstick manually resulted (04/03/2025 2:02 PM EDT) Color, UA Yellow Clarity, UA Clear Glucose, UA Few 15 Comment:500 mg/dL Bilirubin, UA Negative Ketones, UA Negative Spec Grav, UA 1.010 Blood, UA Negative Negative, None Detected pH, UA 6.0 Protein, UA Negative Urobilinogen, UA 0.2 Leukocytes, UA Negative Negative, Rare, Trace Nitrite, UA Negative Negative, None Detected Urine 04/03/2025 2:02 PM EDT Poonam Obregon MD POINT OF CARE TEST ENTER/EDIT ORDERABLES Final Result * POCT glucose manually resulted (04/03/2025 2:02 PM EDT) Glucose Blood, POC 199 60 - 200 mg/dL Blood Capillary blood specimen / Unknown 04/03/2025 2:02 PM EDT Poonam Obregon MD POINT OF CARE TEST ENTER/EDIT ORDERABLES Final Result documented in this encounter Visit Diagnoses Diagnosis Joceline vaginitis- Primary Candidiasis of vulva and vagina documented in this encounter Additional Health Concerns Assessment Noted Time PHQ-9 Depression Total Score: 0 12/31/19 24 10:10 AM EDT documented as of this encounter Care Teams Registration Specialist Relationship Specialty Start Date End Date Niecy Card MD [address] [place] [address] PCP - General Family Medicine 03/28/21 Randi Berg PharmD [address] [place] [address] Pharmacist Internal Medicine 02/23/25 documented as of this encounter
--- OUTSIDE RECORDS SUMMARY | 2025-04-03 16:47 | XMS_ITS | Clinical Summary ---
Author Organization [employer] [facility] ity Address [address] [place] [address] Care Team Providers Care Flow Coordinator Name Role Phone Unavailable Primary Care Provider Unavailabl e Social History Tobacco Use Types Packs/Day Years Used Date Smoking Tobacco: Never Assessed Comments Unknown Sex and Gender Information Value Date Recorded Sex Assigned at Not on file Legal Sex Female 10:12 AM EST Gender Identity Not on file Sexual Orientation Not on file Plan of Treatment Health Maintenance Due Date Last Done Comments Breast Cancer Screening 1970 DTaP,Tdap,and Td Vaccines (1 - Tdap) 1989 Hepatitis B Vaccines (1 of 3 - 19+ 3-dose series) 1989 Cervical Cancer Screening: P ap Smear 1991 Pneumococcal Vaccine: 50+ Ye ars (1 of 1 - PCV) 2020 Zoster Vaccines (1 of 2) 2020 COVID-19 Vaccine ( - 2023-2 5 season) 2024 Depression Screening 09/14/2024 Influenza Vaccine (#1) 2025 HIB Vaccines Aged Out No longer eligi ble based on patient's age to complete this topic HPV Vaccines Aged Out No longer eligi ble based on patient's age to complete this topic Hepatitis A Vaccines Aged Out No long er eligible based on patient's age to complete this topic IPV Vaccines Aged Out No longer eligi ble based on patient's age to complete this topic MMR Vaccines Aged Out No longer eligi ble based on patient's age to complete this topic Meningococcal ACWY Vaccine Aged Out N o longer eligible based on patient's age to complete this topic Meningococcal B Vaccine Aged Out No l onger eligible based on patient's age to complete this topic RSV Immunization Patients Un kemar 20 months Aged Out No longer eligible b ased on patient's age to complete this topic Varicella Vaccines Aged Out No longer eligible based on patient's age to complete this topic
--- OUTSIDE RECORDS SUMMARY | 2025-04-03 16:47 | XMS_ITS | Clinical Summary ---
Author Organization [facility] Address [address] [place] [address] Care Team Providers Care Manager Gift Name Role Phone Price Carpenter Primary Care Provider [phone] Allergies No known active allergies Medications rosuvastatin (CRESTOR) 10 mg tabletIndications:H yperlipidemia, unspecified hyperlipidemia type Take 2 tablets (20 mg total) by mouth 1 (one) time each day. 30 tablet 1 1 Active metFORMIN (GLUCOPHAGE) 500 mg tabletIndications:T ype 2 diabetes mellitus without complication, without long-term current use of insulin ([facility]) TAKE 1 TABLET (500 MG TOTAL) BY MOUTH 2 (TWO) TIMES A DAY WITH MEALS. 180 tablet 1 1 Active Active Problems Problem Noted Date Diagnosed Date Neck pain 03/07/2021 Headache 03/07/2021 Acute midline low back pain with bilateral sciat ica 02/28/2021 Midline low back pain with sciatica 09/19/2020 Chronic right shoulder pain 07/19/2020 Hyperlipemia 02/16/2019 Type 2 diabetes mellitus wit hout complication, without long-term current use of insulin 11/03/2015 Resolved Problems Problem Noted Date Diagnosed Date Resolved Date Acute midline low back pain without sciatica 1 09/19/2020 Breast calcification, left 05/22/2020 1 09/18/2019 Episodic tension type headache 04/08/2019 07/19/2020 Anemia 11/08/2018 07/19/2020 GERD (gastroesophageal reflux disease) 01/05/2018 07/19/2020 Fibroadenoma 03/12/2017 07/19/2020 Immunizations Immunization Administration Dates Next Due Tdap 02/28/2017 Family History Medical History Relation Comments Diabetes Father Heart disease Father Hypertension Father Diabetes Maternal Grandfather Diabetes Maternal Grandmother Diabetes Mother Relation Status Comments Father Maternal Grandfather Maternal Grandmother Mother Alive Social History Tobacco Use Types Packs/Day Years Used Date Smoking Tobacco: Never Smokeless Tobacco: Never Alcohol Use Standard Drinks/Week Comments Yes 0 (1 standard drink = 0.6 oz pur e alcohol) AUDIT-C Answer Date Recorded Q1: How often do you have a drink containing alc ohol? Monthly or less 03/05/2021 Q2: How many drinks containi ng alcohol do you have on a typical day when you are drinking? 1 or 2 03/05/2021 Q3: How often do you have si x or more drinks on one occasion? Never 03/05/2021 PHQ-2 Answer Date Recorded Depression Risk (PHQ2) Score 0 Comments Unknown Sex and Gender Information Value Date Recorded Sex Assigned at Not on file Legal Sex Female 10:17 AM [facility] Gender Identity Not on file Sexual Orientation Not on file Last Filed Vital Signs Vital Sign Reading Time Taken Comments Blood Pressure 118/73 02/25/2021 9:11 AM EDT Pulse 68 02/25/2021 9:11 AM EDT Temperature 36.7 C (98 F) 02/25/2021 9:11 AM EDT Respiratory Rate 16 07/16/2020 8:56 AM EST Oxygen Saturation 97% 02/25/2021 9:11 AM EDT Inhaled Oxygen Concentration - - Weight 71.6 kg (157 lb 12.8 oz) 02/25/2021 9:11 AM EDT Height 157.5 cm (5' 2 ) 07/16/2020 9:57 AM EST Body Mass Index 28.86 07/16/2020 9:57 AM EST Plan of Treatment Health Maintenance Due Date Last Done Comments CT Colonography 1970 Cologuard 1970 FOBT/FIT 1970 Hepatitis C Screening 1970 Sigmoidoscopy 1970 PHQ-9 Depression Screen 1982 Complete Annual HRA 1988 ARNOLD-7 Anxiety Screen 1988 Pneumococcal Vaccine: 50+ Ye ars (1 of 2 - PCV) 1989 Zoster Vaccines (1 of 2) 2020 Annual Preventive Exam 08/29/2020 08/29/2019, 2017 Mammogram 11/14/2021 11/15/2019, 11/2019, 11/15/2019, Additional history exists Cervical Cancer Screening (Pap/HPV) 07/04/2022 07/04/2017 Influenza Vaccine (#1) 2025 DTaP,Tdap,and Td Vaccines (2 - Td or Tdap) 02/28/2027 02/28/2017 Colonoscopy 10/22/2030 10/22/2020, 05/16 (Previously completed - patient stated) Colorectal Cancer Screening 10/22/2030 RSV Vaccine (SCDM) (1 - 1-do se 75+ series) 2045 COVID-19 Vaccine Discontinued Procedures Procedure Name Priority Date/Time Associated Diagnosis Comments MAMMOGRAPHY Routine 11/15/2019 from Last 3 Months or Most Recently Relevant to Health Maintenance Results * Mammography (11/15/2019) Mammogram 11/15/19 Comment:No significant vera es fro her prior exam Anatomical Region Laterality Modality Other Historical Provider MD HEALTH MAINTENANCE Final Result from Last 3 Months or Most Recently Relevant to Health Maintenance Insurance [employer] Care Teams Manager Gift Relationship Specialty Start Date End Date Price Carpenter PA [address] [place] [address] PCP - General Family Medicine 08/29/19
[2025-04-04 02:21] LABS: CT PCR NOT DETECTED (Not Detect.); NG PCR NOT DETECTED (Not Detect.)
[2025-04-04 10:01] LABS: Bacterial Vaginosis PCR NEGATIVE (Negative); Candida Group PCR DETECTED (Not Detect); Candida glab krusei PCR NOT DETECTED (Not Detect); Trichomonas vaginalis PCR NOT DETECTED (Not Detect)
== END 2025-04-03 16:45 | disposition home or self-care (01) ==
LOC: HO.LNP 16:44
PROVIDERS: Visit Provider Internal Medicine
DX: B37.31 Acute candidiasis of vulva and vagina (principal)
CPT/HCPCS: 81515; 87086; 87491; 87591

== ENCOUNTER 2025-07-10 11:06 | Outpatient (REF) | payer OTHER, SELFPAY ==
--- OUTSIDE RECORDS SUMMARY | 2025-07-10 14:04 | XMS_ITS | Clinical Summary ---
Author Organization [facility] Address [address] [place] [address] Care Team Providers Care Quantitative Analyst Name Role Phone Unavailable Primary Care Provider [...] 2020 Zoster Vaccines (1 of 2) 2020 Depression Screening 09/14/2024 COVID-19 Vaccine (1 - 2023-2 5 season) 2025 Influenza Vaccine (#1) 2025 RSV Immunization Adult Patie nts (1 - 1-dose 75+ series) 2045 HIB Vaccines Aged Out No longer eligi [...]
--- OUTSIDE RECORDS SUMMARY | 2025-07-10 14:04 | XMS_ITS | Encounter Summary ---
Author Organization [employer] Address [address] [facility] 7 [place] [address] [address] Team Prov[address] Care Road Roller Operator Hot Mix Name Role Phone Niecy Card MD Primary Care Provider [phone] Randi Berg PharmD Unavailable [phone] Encounter Details Date Type Department Care Team ([facility] Contact Info) Description 07/03/2025 Results Follow-Up [facility] MED & PEDS [address] [place], [place] [phone] Niecy Card MD [address] [place] [address] XR Cervical Spine 2-3 Views Social History Tobacco Use Types Packs/Day Years Used Date Smoking Tobacco: Never Passive Smoke Exposure: Never Smokeless Tobacco: Never Depression Answer Date Recorded Patient Health Questionnaire-9 Score 0 12/31/2023 Patient Health Questionnaire-9 Score 0 12/31/2023 Last PHQ-9: Questionnaire Data Not on file 0 12/31/2023 Housing Stability Answer Date Recorded What is your housing situation today? I have raudel jadiel 12/23/[address] you li [...] Care Team (Late st Contact Info) Description 07/27/2025 9:00 AM EST Medication Management [facility] MED & PEDS [address] [place] [address] Randi Berg PharmD [address] [place] [address] documented as of this encounter Visit Diagnoses Not on filedocumented in this encounter Additional Health Concerns Assessment Noted Time PHQ-9 Depression Total Score: 0 12/31/19 24 10:10 AM EDT documented as of this encounter Care Teams Road Roller Operator Hot Mix Relationship Specialty Start Date End Date Niecy Card MD [address] [place] [address] PCP - General Family Medicine 03/28/21 Randi Berg, PharmD [address] [place], [place] [phone] Pharmacist Internal Medicine 02/23/25 documented as of this encounter
--- OUTSIDE RECORDS SUMMARY | 2025-07-10 14:04 | XMS_ITS | Encounter Summary ---
Author Organization [employer] Address [address] [facility] 7 [place] [address] Care Team Providers Care Commission Auditor Name Role Phone Niecy Card MD Primary Care Provider [phone] Randi Berg PharmD Unavailable [phone] Reason for Visit * Reason Onset Date Comments MRI order 06/07/2025 Encounter Details Date Type Department Care Team (Late st Contact Info) Description 06/07/2025 Telephone [facility] [address] [place] [address] Niecy Card MD [address] [place] [address] MRI order Social History Tobacco Use Types Packs/Day Years [...] AM EDT documented as of this encounter Miscellaneous Notes * Telephone Encounter - Maninder Sanchez - 06/07/2025 2:11 PM EDT TC from pt needing MRI of brain order sent to [facility] . documented in this encounter Plan of Treatment Upcoming Encounters Date Type Department Care Team (Late st Contact Info) Description 07/27/2025 9:00 AM EST Medication Management [facility] MED & PEDS [address] [place] [address] Randi Berg PharmD [address] [place] [address] documented as of this encounter Visit Diagnoses Not on filedocumented in this encounter Additional Health Concerns Assessment Noted Time PHQ-9 Depression Total Score: 0 12/31/19 10:10 AM EDT documented as of this encounter Care Teams Commission Auditor Relationship Specialty Start Date End Date Niecy Card MD [address] [place], [place] [phone] PCP - General Family Medicine 03/28/21 Randi Berg PharmD [address] [place], [place] [phone] Pharmacist Internal Medicine 02/23/25 documented as of this encounter
--- OUTSIDE RECORDS SUMMARY | 2025-07-10 14:05 | XMS_ITS | Encounter Summary ---
Author Organization [employer] Address [address] [facility] 7t [place] [address] Care Team Providers Care Drafter Commercial Name Role Phone Niecy Card MD Primary Care Provider [phone] Randi Berg PharmD Unavailable [phone] Reason for Visit * Reason Comments Med Change Request Encounter Details Date Type Department Care Team ([facility] st Contact Info) Description 04/19/2025 Refill [facility] CHC MED & PEDS [address] [place], [place] [phone] Charmaine Gonzalez MD [address] [place], [place] [phone] Social History Tobacco Use Types Packs/Day Years [...] Description 07/27/2025 9:00 AM EST Medication Management [facility] MED & PEDS [address] [place] [address] Randi Berg PharmD [address] [place] [address] documented as of this encounter Visit Diagnoses Not on filedocumented in this encounter Additional Health Concerns Assessment Noted Time PHQ-9 Depression Total Score: 0 12/31/19 24 10:10 AM EDT documented as of this encounter Care Teams Drafter Commercial Relationship Specialty Start Date End Date Niecy Card MD [address] [place] [address] PCP - General Family Medicine 03/28/21 Randi Berg, PharmD [address] [place] [address] Pharmacist Internal Medicine 02/23/25 documented as of this encounter
--- OUTSIDE RECORDS SUMMARY | 2025-07-10 14:05 | XMS_ITS | Encounter Summary ---
Author Organization [employer] Address [address] [facility] 7 [place] [address] Care Team Providers Care Financial Services Associate Name Role Phone Niecy Card MD Primary Care Provider [phone] Randi Berg PharmD Unavailable Reason for Visit * Reason Onset Date Comments Appointment Request 05/04/2025 Encounter Details Date Type Department Care Team ([facility] Contact Info) Description 05/04/2025 Telephone [facility] MED & PEDS [address] [place], [place] [phone] Niecy Card MD [address] [place], [place] [phone] Appointment Request Social History Tobacco Use Types Packs/Day Years Used Date Smoking Tobacco: Never Passive Smoke Exposure: Never Smokeless Tobacco: Never Depression Answer Date Recorded Patient Health Questionnaire-9 Score 0 12/31/2023 Patient Health Questionnaire-9 Score 0 12/31/2023 Last PHQ-9: Questionnaire Data Not on file 0 12/31/2023 Housing Stability Answer Date Recorded What is your housing situation today? I have raudelarlene duvall 12/23/[address] you [...] encounter Miscellaneous Notes * Telephone Encounter - Juarez Mazariegos - 05/04/2025 11:52 AM EDT Tc from pt requesting to reschedule pt schedule for today Contact pt at [phone] (citizen [place] documented in this encounter Plan of Treatment Upcoming Encounters Date Type Department Care Team (Late st Contact Info) Description 07/27/2025 9:00 AM EST Medication Management [facility] MED & PEDS [address] [place] [address] Randi Berg PharmD [address] [place] [address] documented as of this encounter Visit Diagnoses Not on filedocumented in this encounter Additional Health Concerns Assessment Noted Time PHQ-9 Depression Total Score: 0 12/31/19 24 10:10 AM EDT documented as of this encounter Care Teams Financial Services Associate Relationship Specialty Start Date End Date Niecy Card MD [address] [place] [address] PCP - General Family Medicine 03/28/21 Randi Berg PharmD [address] [place] [address] Pharmacist Internal Medicine 02/23/25 documented as of this encounter
--- OUTSIDE RECORDS SUMMARY | 2025-07-10 14:05 | XMS_ITS | Encounter Summary ---
Author Organization [employer] Address [address] [facility] [address] [place] [address] Care Team Providers Care Packaging Designer Name Role Phone Niecy Card MD Primary Care Provider [phone] Randi Berg PharmD Unavailable Encounter Details Date Type Department Care Team ([facility] st Contact Info) Description 05/10/2025 Orders Only [facility] CH[facility] MED & PEDS [address] [place] [address] Provider, MD Mery Social History Tobacco Use Types Packs/Day Years [...] Description 07/27/2025 9:00 AM EST Medication Management [facility] MED & PEDS [address] [place], [place] [phone] Randi Berg PharmD [address] [place] [address] documented as of this encounter Procedures Procedure Name Priority Date/Time Associated Diagnosis Comments DIABETES EYE EXAM Routine 05/09/2025 10:20 AM EDT documented in this encounter Results * Hm Diabetes Eye Exam (05/09/2025 10:20 AM EDT) us Historical Provider HEALTH MAINTENANCE Final Result documented in this encounter Visit Diagnoses Not on filedocumented in this encounter Additional Health Concerns Assessment Noted Time PHQ-9 Depression Total Score: 0 12/31/19 24 10:10 AM EDT documented as of this encounter Care Teams Packaging Designer Relationship Specialty Start Date End Date Niecy Card MD [address] [place] [address] PCP - General Family Medicine 03/28/21 Randi Berg PharmD [address] [place] [address] Pharmacist Internal Medicine 02/23/25 documented as of this encounter
--- OUTSIDE RECORDS SUMMARY | 2025-07-10 14:05 | XMS_ITS | Clinical Summary ---
Author Organization [facility] Address [address] [place] [address] Care Team Providers Care Sprinkling System Installer Name Role Phone Price Carpenter Primary Care Provider [phone] Allergies No known active allergies Medications rosuvastatin (CRESTOR) 10 mg tabletIndications:H yperlipidemia, unspecified hyperlipidemia type Take 2 tablets (20 mg total) by mouth 1 (one) time each day. 30 tablet 1 1 Active metFORMIN (GLUCOPHAGE) 500 mg tabletIndications:T ype 2 diabetes mellitus without complication, without long-term current use of insulin ([facility]) TAKE 1 TABLET (500 MG TOTAL) BY [...] on file Legal Sex Female 10:17 AM [facility] Gender Identity Not on file Sexual Orientation [...] 1970 Hepatitis C Screening 1970 Sigmoidoscopy 1970 MMR Vaccines (1 of 1 - Stand yves series) 1971 PHQ-9 Depression Screen 1982 Complete Annual HRA 1988 ARNOLD-7 Anxiety Screen 1988 Hepatitis B Vaccines (1 of 3 - 19+ 3-dose series) 1989 Pneumococcal Vaccine: 50+ Ye ars (1 of 2 - PCV) 1989 Zoster Vaccines (1 of 2) 2020 Annual Preventive Exam 08/29/2020 08/29/2019, 2017 Mammogram 11/14/2021 11/15/2019, 03/11/2019, 11/15/2019, Additional history exists Cervical Cancer Screening [...] Anatomical Region Laterality Modality Other Historical Provider HEALTH MAINTENANCE Final Result from Last 3 Months or Most Recently Relevant to Health Maintenance Insurance [facility] Care Teams Sprinkling System Installer Relationship Specialty Start Date End Date Price Carpenter PA [address] [place] [address] PCP - General Family Medicine 08/29/19
--- OUTSIDE RECORDS SUMMARY | 2025-07-10 14:06 | XMS_ITS | Encounter Summary ---
Author Organization [employer] Address [address] [place] [address] Care Team Providers Care Flame Cutting Machine Operator Helper Name Role Phone Niecy Card MD Primary Care Provider [phone] Randi Berg PharmD Unavailable [phone] Encounter Details Date Type Department Care Team (Late st Contact Info) Description 12/22/2022 Telephone [facility] [address] [place] [address] Niecy Card MD [address] [place] [address] Social History Tobacco Use Types Packs/Day Years Used Date Smoking Tobacco: Never Smokeless Tobacco: Never Comments Unknown Sex and Gender Information Value Date Recorded Sex Assigned at Female 07/14/2022 10:20 AM EDT Legal Sex Female 10:20 AM EDT Gender Identity Female 07/14/2022 10:20 AM EDT Sexual Orientation Straight 07/14/2022 10 :20 AM EDT documented as of this encounter Plan of Treatment Upcoming Encounters Date Type Department Care Team (Late Contact Info) Description 07/27/2025 9:00 AM EST Medication Management [facility] MED & PEDS [address] [place], [place] [phone] Randi Berg, PharmD [address] [place] [address] documented as of this encounter Visit Diagnoses Not on filedocumented in this encounter Care Teams Flame Cutting Machine Operator Helper Relationship Specialty Start Date End Date Niecy Card MD [address] [place] [address] PCP - General Family Medicine 03/28/21 Randi Berg PharmD [address] [place] [address] Pharmacist Internal Medicine 02/23/25 documented as of this encounter
--- OUTSIDE RECORDS SUMMARY | 2025-07-10 14:06 | XMS_ITS | Encounter Summary ---
Author Organization [employer] Address [address] [place] [address] [facility] [place] [address] Care Team Providers Care Coremaking Machine Setter Name Role Phone Niecy Card MD Primary Care Provider [phone] Randi Berg PharmD Unavailable [phone] Reason for Referral * Consultation (Routine) - Canceled Specialty Diagnoses / Procedures Referred By Luis Eduardo king Referred To Contact Orthopaedic Surgery Diagnoses Trigger middle finger of right hand Niecy Card MD [address] [place] [address] Phone: tel: fax: Referral ID Status Reason Start Date Expiration Date Visits Requested Visits Authorized [id number] Canceled Specialty Services Required 04/21/2024 04/21/2025 1 1 Scheduling Instructions [facility] if possible Encounter Details Date Type Department Care Team (Late st Contact Info) Description 04/21/2024 Orders Only [facility] PEDS [address] [place] [address] Niecy Card MD [address] [place] [address] Trigger middle finger of right hand (Primary Dx) Social History Tobacco Use Types [...] Description 07/27/2025 9:00 AM EST Medication Management [facility] P[facility] [address] [place] [address] Randi Berg, PharmD [address] [place] [address] Scheduled Referrals Name Type Priority Associated Diagnoses Order Schedule Referral to Orthopaedic Surgery Outpatient Referral Routine Trigger middle finger of right hand Expected: 04/21/2024 (Approximate), Expires: 04/21/2025 documented as of this encounter Visit Diagnoses Diagnosis Trigger middle finger of right hand- Primary documented in this encounter Additional Health Concerns Assessment Noted Time PHQ-9 Depression Total Score: 0 12/31/19 24 10:10 AM EDT documented as of this encounter Care Teams Coremaking Machine Setter Relationship Specialty Start Date End Date Niecy Card MD [address] [place] [address] PCP - General Family Medicine 03/28/21 Randi Breg PharmD [address] [place] [address] Pharmacist Internal Medicine 02/23/25 documented as of this encounter
--- OUTSIDE RECORDS SUMMARY | 2025-07-10 14:06 | XMS_ITS | Encounter Summary ---
Author Organization [employer] Address [address] [place] [address] 7 [place] [address] Care Team Providers Care Biopsychologist Name Role Phone Niecy Card MD Primary Care Provider [phone] Randi Berg PharmD Unavailable [phone] Reason for Visit * Reason Onset Date Comments Appointment Request 12/03/2023 Encounter Details Date Type Department Care Team ([facility] st Contact Info) Description 12/03/2023 Telephone [facility] MED[facility] [address] [place] [address] Niecy Card MD [address] [place] [address] Appointment Request Social History Tobacco Use Types Packs/Day Years Used Date Smoking Tobacco: Never Passive Smoke Exposure: Never Smokeless Tobacco: Never Comments Unknown Sex and Gender Information Value Date Recorded Sex Assigned at Female 07/14/2022 10:20 AM EDT Legal Sex Female 10:20 AM EDT Gender Identity Female 07/14/2022 10:20 AM EDT Sexual Orientation Straight 07/14/2022 10 :20 AM EDT documented as of this encounter Miscellaneous Notes * Telephone Encounter - Keisha Beck - 12/08/2023 10:26 AM EDT Tc from pt in regards below, please contact pt. * Telephone Encounter - Dona Arrieta - 12/03/2023 3:18 PM EDT Tc from pt returning nurse call. * Telephone Encounter - Eleanor Lovett RN - 12/03/2023 3:13 PM EDT T/C to pt. Through [employer] id - [id number] for below message, no answer. LVM to call back [phone]. * Telephone Encounter - Ady Montero - 12/03/2023 12:27 PM EDT Tc from patient calling schedule a follow appt for Diabetes documented in this encounter Plan of Treatment Upcoming Encounters Date Type Department Care Team (Late st Contact Info) Description 07/27/2025 9:00 AM EST Medication Management [facility] MED & PEDS [address] [place] [address] Randi Berg PharmD [address] [place] [address] documented as of this encounter Visit Diagnoses Not on filedocumented in this encounter Care Teams Biopsychologist Relationship Specialty Start Date End Date Niecy Card MD [address] [place] [address] PCP - General Family Medicine 03/28/21 Randi Berg PharmD [address] [place] [address] Pharmacist Internal Medicine 02/23/25 documented as of this encounter
--- OUTSIDE RECORDS SUMMARY | 2025-07-10 14:06 | XMS_ITS | Encounter Summary ---
Author Organization [employer] Address [address] [facility] 7 [place] [address] Care Team Providers Care Pruner Name Role Phone Niecy Card MD Primary Care Provider [phone] Randi Berg PharmD Unavailable [phone] Encounter Details Date Type Department Care Team ([facility] Contact Info) Description 03/11/2024 Telephone [facility] MED & PEDS [address], [place] [phone] Niecy Card MD [address] [place] [address] Social History Tobacco Use Types Packs/Day Years [...] encounter Miscellaneous Notes * Telephone Encounter - Dona Arrieta - 03/11/2024 10:47 AM EDT Tc from states received a call twice. Draw Frame Runner does not see any documentation Please contact pt at [phone] documented in this encounter Plan of Treatment Upcoming Encounters Date Type Department Care Team (Late st Contact Info) Description 07/27/2025 9:00 AM EST Medication Management [facility] MED & PEDS [address], [place] [phone] Randi Berg, PharmVerónica [address] [place] [address] documented as of this encounter Visit Diagnoses Not on filedocumented in this encounter Additional Health Concerns Assessment Noted Time PHQ-9 Depression Total Score: 0 12/31/19 24 10:10 AM EDT documented as of this encounter Care Teams Pruner Relationship Specialty Start Date End Date Niecy Card MD [address] [place], [place] [phone] PCP - General Family Medicine 03/28/21 Randi Berg PharmD [address] [place], [place] [phone] Pharmacist Internal Medicine 02/23/25 documented as of this encounter
--- OUTSIDE RECORDS SUMMARY | 2025-07-10 14:06 | XMS_ITS | Clinical Summary ---
Author Organization [employer] Address [address] [facility] [address] [place] [address] Care Team Providers Care Vacuum Cleaner Repairer Name Role Phone Niecy Card MD Primary Care Provider [phone] Randi Berg PharmD Unavailable Allergies No known active allergies Medications lisinopril 2.5 MG tablet Take 1 tablet (2.5 mg) by mouth Once per day. 90 tablet 3 11/24/19 25 026 Active glucose blood (Accu-Chek Guide Test) test strip Test blood sugar once daily 100 each 11 02/24/20 25 026 Active Accu-Chek Softclix Lancets lancets Test blood sugar once daily 100 each 11 02/24/20 25 026 Active empagliflozin (Jardiance) 25 MG Take 1 tablet (25 mg) by mouth Once per day. 02/24/20 25 Active rosuvastatin (Crestor) 10 MG tablet Take 1 tablet (10 mg) by mouth Once per day. 90 tablet 3 03/01/20 25 026 Active meloxicam (Mobic) 7.5 MG tabletIndicatio ns:Left elbow tendinitis TAKE 1 TABLET BY MOUTH EVERY DAY IN THE MORNING 30 tablet 3 04/04/20 25 Active fluconazole (Diflucan) 150 MG tablet Take one tablet by mouth today and take the second tablet by mouth in 72 hours. 2 tablet 04/03/20 25 Active Miconazole 7 2 % vaginal cream INSERT 1 APPLICATION INTO THE VAGINA AT BEDTIME FOR 7 DAYS. 04/03/20 Active SUMAtriptan (Imitrex) 25 MG tabletIndicatio ns:Migraine without status migrainosus, not intractable, unspecified migraine type Take 1 tablet (25 mg) by mouth 1 (one) time if needed for migraine for up to 1 dose. May repeat dose once in 2 hours if no relief. Do not exceed 2 doses in 24 hours. 9 tablet 06/06/20 25 Active metFORMIN (Glucophage) 1000 MG tablet TAKE 1 TABLET BY MOUTH TWICE A DAY 180 tablet 06/22/20 25 Active metFORMIN (Glucophage) 1000 MG tablet TAKE 1 TABLET BY MOUTH TWICE A DAY 180 tablet 03/21/20 25 025 Discontinued Active Problems Problem Noted Date Diagnosed Date Abnormal uterine bleeding 06/06/2025 Fibroid 06/06/2025 Abdominal pain 03/25/2024 Assessment & Plan (03/25/2024 3:23 PM EDT): Llq abdominal pain, ddx includes nephrolithiasis, diverticulitis, or ovarian pathology, with concurrent hematuria, will treat for presumed nephrolithiasis, though pt is aware to rtc should symptoms worsen or evolve Flank pain 03/25/2024 Assessment & Plan (03/25/2024 3:25 PM EDT): Colicky left flank pain, radiating to llq, + hematuria, renal CT protocal ordered Given this is Thursday afternoon will send rx for tamsulosin 0.4 but if pt has side effects may discontinue Hydration and pain management reviewed, anticipatory guidance reviewed Aware of [facility] resources, solar energy installation manager services and ER Dyslipidemia 03/28/2021 Gastroesophageal reflux disease 03/28/2021 Headache 03/07/2021 Neck pain 03/07/2021 Acute midline low back pain with bilateral sciat ica 02/28/2021 Midline low back pain with sciatica 09/19/2020 Chronic right shoulder pain 07/19/2020 Type 2 diabetes mellitus wit h hyperglycemia, without long-term current use of insulin 10/13/2013 Encounters Date Type Department Care Team Description 07/03/2025 Results Follow-Up [facility] [address] [place] [address] Niecy Card MD XR Cervical Spine 2-3 Views 06/30/2025 1:30 PM EDT Office Visit [facility] [address] [place] [address] Abdon Durham, RAMILA Cervical radiculopathy (Primary Dx); Right arm pain 06/30/2025 Travel 06/30/[address] [address] Niecy Card MD Nurse Triage 06/22/2025 Refill [facility] [address] [place] [address] Niecy Card MD 06/07/[address] [address] Niecy Card MD MRI order 06/06/2025 3:30 PM EDT Office Visit [facility] [address] [place] [address] Abdon Durham, SENIOR TERADATA DEVELOPER Migraine without status migrainosus, not intractable, unspecified migraine type (Primary Dx); Type 2 diabetes mellitus with hyperglycemia, without long-term current use of insulin ([facility]) 06/06/2025 Travel 06/06/2025 Telephone [facility] [address] [place] [address] Niecy Card MD chart prep 06/06/[address] [address] Niecy Card MD Nurse Triage 05/10/2025 Orders Only [facility] [address] [place] [address] Mery Lind MD 05/04/2025 Telephone [facility] [address] [place] [address] Niecy Card MD Appointment Request 04/19/2025 Refill [facility] [address] [place] [address] Charmaine Gonzalez MD from Last 3 Months Immunizations Immunization Administration Dates Next Due HepB-CpG 02/23/2025 Influenza injectable quadriv alent IIV4 with preservative 06/06/2015 Influenza, IIV3, injectable 08/18/2014 Pfizer Covid-19 Vaccine 12+ 02/03/2021, Pneumococcal Conjugate PCV 20 02/23/2025 Tdap 03/28/2021,02/28/2017 Social History Tobacco Use Types Packs/Day Years Used Date Smoking Tobacco: Never Passive Smoke Exposure: Never Smokeless Tobacco: Never Tobacco Cessation:Counseling Given: Not Answered Depression Answer Date Recorded Patient Health Questionnaire-9 [...] Orientation Straight 07/14/2022 10 :20 AM EDT Last Filed Vital Signs Vital Sign Reading Time Taken Comments Blood Pressure 125/78 06/30/2025 2:03 PM EDT Pulse 68 06/30/2025 1:43 PM EDT Temperature 36.8 C (98.2 F) 06/30/2025 1:43 PM EDT Respiratory Rate 12 06/30/2025 1:43 PM EDT Oxygen Saturation 98% 06/30/2025 1:43 PM EDT Inhaled Oxygen Concentration - - Weight 67.6 kg (149 lb) 06/30/2025 1:43 PM EDT Height 152.4 cm (5') 06/30/2025 1:43 PM EDT Body Mass Index 29.1 06/30/2025 1:43 PM EDT Plan of Treatment Upcoming Encounters Date Type Department Care Team (Late st Contact Info) Description 07/27/2025 9:00 AM EST Medication Management [facility] [address] [place] [address] Randi Berg, PharmD [address] [place], [place] [phone] Health Maintenance Due Date Last Done Comments CT Colonography 1970 Colonoscopy 1970 FIT 1970 HIV Screening 1970 Sigmoidoscopy 1970 Disability Screening 1970 Alcohol/Substance Use Screening 1982 Hepatitis C Screening 1988 Zoster Vaccines (1 of 2) 2020 Cervical Cancer Screening 04/02/2024 HPV/Cotest 04/02/2024 04/02/2021 Pap Smear 04/02/2024 04/02/2021 SDOH Screening 12/22/2024 12/23/2023 Depression Screening 12/30/2024 12/31/2023, 12/31/19 24 Diabetes: Foot Exam 12/30/2024 12/31/2023, 12/31/2023, 12/31/2023, Additional history exists FOBT 01/10/2025 01/11/2024 Hepatitis B Vaccines (2 of 2 - CpG 2-dose series) 03/23/2025 02/23/2025 COVID-19 Vaccine (3 - season) 2025 02/03/2021, 01/13/2021 Influenza Vaccine (#1) 2025 06/06/2015, 2013 Mammogram 06/07/2025 06/07/2024, 05/16, 05/27/2022, Additional history exists Diabetes: Hemoglobin A1C 09/05/2025 025, 02/23/2025, 11/23/2024, Additional history exists Diabetes: Urine Protein Screening 02/24/2026 02/24/2025, 01/11/2024, 07/24/2021, Additional history exists Lipid Panel 02/24/2026 02/24/2025, 12/14, 02/27/2023, Additional history exists Tobacco Screening 04/03/2026 04/03/2025 Colorectal Cancer Screening 01/10/2027 FIT DNA/Cologuard 01/10/2027 01/11/2024 Eye Exam 05/09/2027 05/09/2025 DTaP/Tdap/Td Vaccines (3 - Td or Tdap) 03/28/2031 03/28/2021, 02/28/2017 RSV Patients and Patients Aged 60 years or older (1 - 1-dose 75+ series) 2045 Pneumococcal Vaccine: 50+ Years Completed 02/23/2025 HIB Vaccines Aged Out No longer eligi [...] patient's age to complete this topic Meningococcal Vaccine Aged Out No phylicia eleazar eligible based on patient's age to complete this topic RSV under 20 months Aged Out No longe r eligible based on patient's age to complete this topic Rotavirus Vaccines Aged Out No longer eligible based on patient's age to complete this topic Procedures Procedure Name Priority Date/Time Associated Diagnosis Comments ECG 12-LEAD Routine 06/30/2025 2:44 PM EDT Right arm pain XR CERVICAL SPINE 2-3 VIEWS Routine 06/30/2025 Cervical radiculopathy POCT GLYCATED HEMOGLOBIN, TOTAL Routine 06/06/2025 3:44 PM EDT Type 2 diabetes mellitus with hyperglycemia, without long-term current use of insulin ([facility]) POCT GLUCOSE Routine 06/06/2025 3:34 PM EDT Type 2 diabetes mellitus with hyperglycemia, without long-term current use of insulin ([facility]) HM DIABETES EYE EXAM Routine 05/09/2025 10:20 AM EDT ALBUMIN, RANDOM URINE W/CREATININE Routine 02/24/2025 8:22 AM EDT LIPID PANEL, STANDARD Routine 02/24/2025 8:22 AM EDT BI MAMMOGRAM SCREENING TOMOSYNTHESIS BILATERAL Routine 06/07/2024 12:15 PM EDT LAB COLOGUARD COLON CANCER SCREEN Routine 01/11/2024 2:55 AM EDT Colon cancer screening HPV MRNA E6/E7 Routine 04/02/2021 9:13 AM EDT THINPREP PAP Routine 04/02/2021 9:13 AM EDT from Last 3 Months or Most Recently Relevant to Health Maintenance Results * ECG 12 lead (06/30/2025 2:44 PM EDT) Narrative Abdon Durham CNP - 06/30/2025 2:44 PM EDT NSR, Rate 73bpm, no ST segmental changes, normal R wave progression Pending cosign: Niecy Card MD [facility] ECG ORDERABLES Final Res ult * XR Cervical Spine 2-3 Views (06/30/2025) Anatomical Region Laterality Modality Spine, C-spine Radiographic Stephenie ging [facility] IMG XR PROCEDURES Final R esult * (ABNORMAL) POCT A1c (06/06/2025 3:44 PM EDT) Hemoglobin A1C 8.2(A) 4.0 - 5.7 % QC Media Lot # Comment:[id number] Lot# Expiration Date Comment:12/19/2026 Blood 06/06/2025 3:44 PM EDT [facility] POINT OF CARE TEST ENTER/ EDIT ORDERABLES Final Result * POCT glucose manually resulted (06/06/2025 3:34 PM EDT) Glucose Blood, POC 177 60 - 200 mg/dL QC Media Lot # Comment:[id number] Lot# Expiration Date Comment:09/02/2025 Blood Capillary blood specimen / Unknown 06/06/2025 3:34 PM EDT Result [facility] POINT OF CARE TEST ENTER/ EDIT ORDERABLES Final Result * Diabetes Eye Exam (05/09/2025 10:20 AM EDT) Result [facility] Mery Provider HEALTH MAINTENANCE Final Result * Albumin, Random Urine W/Creatinine (02/24/2025 8:22 AM EDT) Creatinine, Urine 82.90 mg/dL [facility] Microalbumin Urine 8.0 mg/L [facility] Microalbum Creatinine Ratio Ur 9.6 <30 ug/mg cr [facility] Comment:Albumin/Creatinine R atio Reference Ranges: Normal: < 30 ug/mg creatinine Microalbuminuria: 30 - 300 ug/mg creatinineClinical Albuminuria: > 300 ug/mg creatinine 02/24/2025 8:22 AM EDT 02/24/2025 2:00 PM EDT Result [facility] Niecy Card MD LAB URINE ORDERABLES Final Re sult [facility] [address] [place] [phone] * (ABNORMAL) Lipid Panel, Standard (02/24/2025 8:22 AM EDT) Triglycerides 137 <150 mg/dL [facility] Comment:Desirable Triglyceri de: less than 150 mg/dLBorderline High Triglyceride 150-199 mg/dLHigh Triglyceride: 200-499 mg/dLVery High Triglyceride: greater than or equal to 5OO mg/dL Cholesterol 254(H) <200 mg/dL [facility] Comment:Desirable Cholestero l: less than 200 mg/dLBorderline High Cholesterol: 200-239 mg/dLHigh Cholesterol: greater than 239 mg/dL LDL Cholesterol Calculated 170(H) <100 mg/dL [facility] Comment:Desirable LDL: less than 100 mg/dLNear Optimal/Above Optimal LDL: 110- 129 mg/dLBorderline High LDL: 130-159 mg/dLHigh LDL: 160-189 mg/dLVery High LDL: greater than or equal to 190 mg/dL HDL Cholesterol 57 >40 mg/dL [facility] Comment:Desirable HDL: great er than 40 mg/dL Note: This HDL assay may give artificially low results in patients with liver disease. 02/24/2025 8:22 AM EDT 02/24/2025 2:05 PM EDT us Niecy Card MD LAB BLOOD ORDERABLES Final Re sult [facility] [address] [place] [phone] * BI Mammogram Screening Tomosynthesis Bilateral (06/07/2024 12:15 PM EDT) Anatomical Region Laterality Modality Breast Bilateral Mammography 06/07/2024 12:1 5 PM EDT Narrative 06/17/2024 12:39 PM EDT [facility] [address] [place] [address] Mammography Report Signed Patient: Usha Bowser MR#: [id number] : 1970 Acct:[id number] Age/Sex: 53 / F ADM Date: 06/07/24 Loc: [facility] Attending Dr: Niecy Card MD Ordering Physician: Niecy Card MD Results: 2Be nign Findings Date of Service: 06/07/24 Follow Up: 1 Year From Orig ina Mammogram Procedure(s): MM tomosynthesis screening BI Accession Number(s): [id number] cc: Niecy Card MD EXAMINATION: MM SCREENING DIGITAL BREAST TOMOSYNTHESIS, BILATERAL CLINICAL INFORMATION: Screening. Asymptomatic. COMPARISON: Mammography: Comparison is made with available priors TECHNIQUE: Digital breast mammography with tomosynthesis is performed in both the craniocaudal and mediolateral oblique views along with computer-aided detection (CAD). FINDINGS: The breasts are heterogeneously dense, which may obscure small masses (ACR BI-RADS breast composition Category c). Left breast marker clips. There are no significant masses, abnormal calcifications, or other abnormalities. MM/MM tomosynthesis screening BI IMPRESSION: No mammographic evidence of malignancy. ASSESSMENT: BI-RADS BI-RADS 2 - Benign Findings RECOMMENDATION: Routine annual mammography screening. 1 year F/U This examination should not preclude the clinical evaluation of a suspicious palpable abnormality. This patient's information was entered into a reminder system with a target due date for their next mammogram. Electronically signed by: Annabelle Diez DO 06/17/2024 12:35 PM EDT Dictated By: Annabelle Diez DO Signed By: <Electronically signed by Annabelle Diez DO in OV> 06/17/24 1235 DD/ 1215 TD/TT: 06/07/24 1224 Solutions Sales Consultant: Procedure Note Donotuseinterpreter, Image - 06/17/[address] [facility] [address] [place], [place] [address] Mammography Report Signed Patient: Scottie Bowser#: M [id number] : 1970Acct:[id number] Age/Sex: 53 / FADM Date: 06/07/24 Loc: HO.MAMMO Attending Dr: Niecy Card MD Ordering Physician: Niecy Card MDResults: 2Be nign Findings Date of Service: 06/07/24Follow Up: 1 Year From [facility] ina Mammogram Procedure(s): MM tomosynthesis screening BI Accession Number(s): [id number] cc: Niecy Card MD EXAMINATION: MM SCREENING DIGITAL BREAST TOMOSYNTHESIS, BILATERAL CLINICAL INFORMATION: Screening. Asymptomatic. COMPARISON: Mammography: Comparison is made with available priors TECHNIQUE: Digital breast mammography with tomosynthesis is performed in both the craniocaudal and mediolateral oblique views along with computer-aided detection (CAD). FINDINGS: The breasts are heterogeneously dense, which may obscure small masses (ACR BI-RADS breast composition Category c). Left breast marker clips. There are no significant masses, abnormal calcifications, or other abnormalities. MM/MM tomosynthesis screening BI IMPRESSION: No mammographic evidence of malignancy. ASSESSMENT: BI-RADS BI-RADS 2 - Benign Findings RECOMMENDATION: Routine annual mammography screening. 1 year F/U This examination should not preclude the clinical evaluation of a suspicious palpable abnormality. This patient's information was entered into a reminder system with a target due date for their next mammogram. Electronically signed by: Annabelle Diez DO 06/17/2024 12:35 PM EDT Dictated By: Annabelle Diez DO Signed By: <Electronically signed by Annabelle Diez DO in OV> 06/17/24 1235 DD/ 1215 TD/TT: 06/07/24 1224 Solutions Sales Consultant: us Niecy Card MD [facility] BI PROCEDURES Edited Resu lt - Final * Cologuard?? colon cancer screening (01/11/2024 2:55 AM EDT) Cologuard Result Negative Negative 01/20/20 10:21 AM EDT [facility] (CLIA #:[id number]) Comment: NEGATIVE TEST RESULT. A negative Cologuard result indicates a low likelihood that a colorectal cancer (CRC) or advanced adenoma (adenomatous polyps with more advanced pre-malignant features) is present. The chance that a person with a negative Cologuard test has a colorectal cancer is less than 1 in 1500 (negative predictive value >99.9%) or has an advanced adenoma is less than 5.3% (negative predictive value 94.7%). These data are based on a prospective cross-sectional study of 10,000 individuals at average risk for colorectal cancer who were screened with both Cologuard and colonoscopy. (Aimee Xiao al, N Engl J Med 2014;370(14):4455-9147) The normal value (reference range) for this assay is negative. COLOGUARD RE-SCREENING RECOMMENDATION: Periodic colorectal cancer screening is an important part of preventive healthcare for asymptomatic individuals at average risk for colorectal cancer. Following a negative Cologuard result, the [place] Cancer Society and U.S. Multi-Society Task Force screening guidelines recommend a Cologuard re-screening interval of 3 years. References: [place] [employer] Guideline for Colorectal Cancer Screening: https://www.cancer.org/cancer/vnrbn-pwxalt-tdwwzq/yrznrfymc-vcgyqiimm-amyhmbr/ac s-rec ommendations.html.; Keaton DK, John ALICEA, Olivia RiveraK, Colorectal Cancer Screening: Recommendations for Physicians and Patients from the U.S. Multi-Society Task Force on Colorectal Cancer Screening , Am J Gastroenterology 2017; 112:9700-1144. TEST DESCRIPTION: Composite algorithmic analysis of stool DNA-biomarkers with hemoglobin immunoassay. Quantitative values of individual biomarkers are not reportable and are not associated with individual biomarker result reference ranges. Cologuard is intended for colorectal cancer screening of adults of either sex, 45 years or older, who are at average-risk for colorectal cancer (CRC). Cologuard has been approved for use by the U.S. FDA. The performance of Cologuard was established in a cross sectional study of average-risk adults aged 50-84. Cologuard performance in patients ages 45 to 49 years was estimated by sub-group analysis of near-age groups. Colonoscopies performed for a positive result may find as the most clinically significant lesion: colorectal cancer [4.0%], advanced adenoma (including sessile serrated polyps greater than or equal to 1cm diameter) [20%] or non- advanced adenoma [31%]; or no colorectal neoplasia [45%]. These estimates are derived from a prospective cross-sectional screening study of 10,000 individuals at average risk for colorectal cancer who were screened with both Cologuard and colonoscopy. (Aimee Menchaca et al, N Engl J Med 2014;370(14):6074-0286.) Cologuard may produce a false negative or false positive result (no colorectal cancer or precancerous polyp present at colonoscopy follow up). A negative Cologuard test result does not guarantee the absence of CRC or advanced adenoma (pre-cancer). The current Cologuard screening interval is every 3 years. ([place] Cancer Society and U.S. Multi-Society Task Force). Cologuard performance data in a 10,000 patient pivotal study using colonoscopy as the reference method can be accessed at the following location: www.Thatgamecompany.Zaya/results. Additional description of the Cologuard test process, warnings and precautions can be found at www.[employer] Incoguard.Zaya. Stool specimen (specimen) 01/11/2024 2:55 AM EDT 01/13/2024 10:54 AM EDT Niecy Card MD LAB MOLECULAR DIAGNOSTICS ORD ERABLES Final Result [facility] (CLIA #:[id number]) [place] [address], * THINPREP PAP (04/02/2021 9:13 AM EDT) Clinical Information: None given [facility] COMMENT SEE COMMENT [facility] Comment: EXPLANATORY NOTE: The Pap is a screening test for cervical cancer. It is not a diagnostic test and is subject to false negative and false positive results. It is most reliable when a satisfactory sample, regularly obtained, is submitted with relevant clinical findings and history, and when the Pap result is evaluated along with historic and current clinical information. [employer] : SEE COMMENT [facility] Comment: GSG, CT(ASCP) CT screening location: [place] [address] Interpretation/R esult: Negative for intraepithelial lesion or malignancy. [facility] LMP: NONE GIVEN [facility] Prev. BX: NONE GIVEN [facility] Prev. PAP: 3 YR NIL [facility] SOURCE: None given [facility] Statement Of Adequacy: SEE COMMENT [facility] Comment: Satisfactory for evaluation. Endocervical/transformation zone component absent. 04/02/2021 9:13 AM EDT Leeanne Cabrera CNM LAB PATHOLOGY ORDERABLES Final Result Performing Organization Address [facility] Co de Phone Number [facility] [address] * HPV mRNA E6/E7 (04/02/2021 9:13 AM EDT) HPV nRNA E6/E7 Not Detected Not Detected [facility] Comment: Methodology: Ambulance Mechanic-Mediated Amplification This assay detects E6/E7 viral messenger RNA (mRNA) from 14 high-risk HPV types (16,18,31,33,35,39,45,51,52,56,58,59,66,68). The analytical performance characteristics of this assay have been determined by [employer]. The modifications have not been cleared or approved by the FDA. This assay has been validated pursuant to the CLIA regulations and is used for clinical purposes. For additional information, please refer to http://education.Dep-Xplora/faq/XEO414s4 (This link if provided for information/ educational purposes only.) 04/02/2021 9:13 AM EDT Leeanne Cabrera CNM LAB BLOOD ORDERABLES Ana Cristina l Result Performing Organization Address [facility] Co de Phone Number [facility] [address] from Last 3 Months or Most Recently Relevant to Health Maintenance Insurance OPEN ACCESS Care Teams Vacuum Cleaner Repairer Relationship Specialty Start Date End Date Niecy Card MD [address] [place] [phone] PCP - General Family Medicine 03/28/21 Randi Berg PharmD [address] [place] [phone] Pharmacist Internal Medicine 02/23/25
--- OUTSIDE RECORDS SUMMARY | 2025-07-10 14:06 | XMS_ITS | Encounter Summary ---
Author Organization [employer] Address [address] [place] [address] Care Team Providers Care Slot Shift Supervisor Name Role Phone Niecy Card MD Primary Care Provider [phone] Randi Berg PharmD Unavailable [phone] Reason for Visit * Reason Comments Med Change Request Encounter Details Date Type Department Care Team (Late st Contact Info) Description 04/01/2024 Refill [facility] [address] [place], [place] [phone] Johanna Oshea NP [address] [place], [place] [phone] Flank pain Social History Tobacco Use Types [...] [facility] [address] [place] [address] Randi Berg PharmVerónica [address] [place] [address] documented as of this encounter Visit Diagnoses Diagnosis Flank pain Abdominal pain, unspecified site documented in this encounter Additional Health Concerns Assessment Noted Time PHQ-9 Depression Total Score: 0 12/31/19 24 10:10 AM EDT documented as of this encounter Care Teams Slot Shift Supervisor Relationship Specialty Start Date End Date Niecy Card MD [address] [place] [address] PCP - General Family Medicine 03/28/21 Randi Berg, TierneyD [address] [place], [place] [phone] Pharmacist Internal Medicine 02/23/25 documented as of this encounter
--- OUTSIDE RECORDS SUMMARY | 2025-07-10 14:06 | XMS_ITS | Encounter Summary ---
Author Organization [facility] Address [address] [place] [address] Care Team Providers Care Clinical Product Manager Name Role Phone Niecy Card MD Primary Care Provider [phone] Randi Berg PharmD Unavailable [phone] Encounter Details Date Type Department Care Team ([facility] st Contact Info) Description 04/22/2024 Orders Only [facility] [address] [place] [address] Provider, MD Mery Social History Tobacco Use [...] 9:00 AM EST Medication Management [facility] [address] [place], [place] [phone] Randi Berg PharmD [address] [place] [address] documented as of this encounter Procedures Procedure Name Priority Date/Time Associated Diagnosis Comments SURGICAL PATHOLOGY Routine 02/17/2024 10:15 AM EDT documented in this encounter Results * Surgical Pathology (02/17/2024 10:15 AM EDT) Historical Provider LAB PATHOLOGY ORDERABLES Final Result documented in this encounter Visit Diagnoses Not on filedocumented in this encounter Additional Health Concerns Assessment Noted Time PHQ-9 Depression Total Score: 0 12/31/19 24 10:10 AM EDT documented as of this encounter Care Teams Clinical Product Manager Relationship Specialty Start Date End Date Niecy Card MD [address] [place] [address] PCP - General Family Medicine 03/28/21 Randi Berg PharmD [address] [place] [address] Pharmacist Internal Medicine 02/23/25 documented as of this encounter
== END 2025-07-10 11:07 | disposition home or self-care (01) ==
LOC: HO.MAMMO 11:06
PROVIDERS: PCP Pediatrics; Visit Provider Pediatrics
DX: Z12.31 Encounter for screening mammogram for malignant neoplasm of breast (principal)
CPT/HCPCS: 77063; 77067

== ENCOUNTER → 2025-07-10 11:30 | Outpatient (BNV) | payer OTHER, SELFPAY | PROVIDERS: PCP Pediatrics; Visit Provider Internal Medicine | DX: Z12.31 Encounter for screening mammogram for malignant neoplasm of breast (principal) | CPT/HCPCS: 77063; 77067 ==